=== PATIENT | male | born 1955 | race Caucasian/White ===

== ENCOUNTER 2016-08-02 17:24 | Inpatient (IN) | payer OTHER ==
[~2016-08-02] VITALS: Ht 177.8 cm; Wt 94.4 kg
[2016-08-02] VITALS (9 sets, daily range): BP systolic 134–148; BP diastolic 67–79; PULSE 94–119; RESP 22–36; TEMP 98.1–100.7; O2SAT 88–96
[~2016-08-02 17:24] MED LIST: BACT800T5 PO; DOXY100T PO; GABA300C3 PO; HYDR-3533 PO; SYMB160A INH
[2016-08-02] MEDS ORDERED: methylPREDNISolone SOD SUCC 125 MG/2 ML VIAL IVP ONE (18:15)
[2016-08-02] MEDS: RESP: ALBUTEROL 2.5 MG/IPRATROPIUM 0.5 MG NEB (SCH) INH ×2 (18:19→18:20)
[2016-08-02 18:21] LABS: AUTOMATED NEUTROPHIL # 17.4 TH/MM3 (1.8-7.7); BASOPHIL # 0.1 TH/MM3 (0-0.2); BASOPHIL % 0.4 % (0.0-2.0); EOSINOPHIL % 0.1 % (0.0-4.0); HEMATOCRIT 40.7 % (39.0-51.0); HEMO FLAGS DIFF FINAL; LYMPH % 11.9 % (9.0-44.0); LYMPHOCYTE # 2.5 TH/MM3 (1.0-4.8); MEAN CELL VOLUME 85.1 FL (80.0-100.0); MEAN CORPUSCULAR HEMOGLOBIN 28.3 PG (27.0-34.0); MEAN CORPUSCULAR HGB CONC 33.3 % (32.0-36.0); MONO % 4.6 % (0.0-8.0); PLATELET COUNT 272 TH/MM3 (150-450); RED BLOOD COUNT 4.78 MIL/MM3 (4.50-5.90); RED CELL DISTRIBUTION WIDTH 13.9 % (11.6-17.2)
[2016-08-02] MEDS ORDERED: METO-309 PO (18:24)
[2016-08-02] MEDS ORDERED: FLUT1SPR5 EACH NARE (18:24)
[2016-08-02] MEDS ORDERED: GABA300C5 PO (18:24)
[2016-08-02] MEDS ORDERED: GABA600T PO (18:24)
[2016-08-02] MEDS ORDERED: IPRASOL INH (18:24)
[2016-08-02] MEDS ORDERED: SYMB160A INH (18:24)
--- NOTE | 2016-08-02 18:25 | PD ---
HPI Chief Complaint: Respiratory Distress Time Seen by Provider: 17:47 Travel History International Travel<30 days: No Contact w/Intl Traveler<30days: No Traveled to known affect area: No History of Present Illness HPI This is a 60-year-old male who has a history of COPD who presents to the emergency department with increasing shortness of breath over the past week. He says primary care physician who prescribed him prednisone and an antibiotic which she thinks is doxycycline. He says his shortness of breath is just worsened associated with a cough, nausea and generalized fatigue. He has difficulty with exertion and he feels chest tightness in the center of his chest when he coughs and breathes. He has had subjective fevers and chills. He 's had a history of recurrent pneumonias in the past. PFSH Past Medical History Cancer: No Cardiac Catheterization: Yes (11/30/14) Cardiovascular Problems: Yes (HTN) High Cholesterol: Yes Chest Pain: Yes COPD: Yes Diabetes: Yes (BORDERLINE DIABETES) Patient Takes Glucophage: No Diminished Hearing: No Endocrine: Yes Gastrointestinal Disorders: No Genitourinary: No Headaches: Yes Hypertension: Yes Immune Disorder: No Musculoskeletal: No Neurologic: Yes Psychiatric: No Reproductive: No Respiratory: Yes (COPD) Tetanus Vaccination: < 5 Years Influenza Vaccination: No Past Surgical History Other Surgery: Yes Social History Alcohol Use: No Tobacco Use: Yes (07/02 ppd) Substance Use: No Allergies-Medications (Allergen,Severity, Reaction): Coded Allergies: No Known Allergies (Unverified , 08/02/16) Reported Meds & Prescriptions Reported Meds & Active Scripts Active Reported Flonase Allergy Relief Nasal [place] (Fluticasone Nasal [place]) 50 Mcg/Act [place] 2 Puff EACH NARE DAILY Gabapentin 600 Mg Tab 600 Mg PO HS Gabapentin 300 Mg Cap 300 Mg PO BID Symbicort Inh (Budesonide/Formoterol Fumarate) 160-4.5 Mcg/Act Aero 2 Puff INH Q12HR Review of Systems Except as stated in HPI: all other systems reviewed are Neg Physical Exam Narrative GENERAL:Well appearing, no acute distress SKIN: Warm and dry. HEAD: Atraumatic. Normocephalic. EYES: Pupils equal and round. No injection or drainage. ENT: Moist mucous membranes NECK: Trachea midline. CARDIOVASCULAR: Regular rate and rhythm. No murmur appreciated. RESPIRATORY: Diffuse wheezing, mild increased work of breathing, no accessory muscle use GASTROINTESTINAL: Abdomen soft, non-tender, nondistended. MUSCULOSKELETAL: No obvious deformities. NEUROLOGICAL: Awake and alert. No obvious cranial nerve deficits. Moving all extremities. PSYCHIATRIC: Appropriate mood and affect; insight and judgment normal. Data Data Last Documented VS Orders Electrocardiogram (08/02/16 ) Complete Blood Count With Diff (08/02/16 17:59) Comprehensive Metabolic Panel (08/02/16 17:59) ^ Insert Iv (08/02/16 17:59) Chest, Single Ap (08/02/16 ) Methylprednisolone So Succ Inj (Solumedr (08/02/16 18:15) Albuterol-Ipratropium Neb (Duoneb Neb) (08/02/16 18:15) Influenzae A/B Antigen (08/02/16 18:10) Blood Culture (08/02/16 18:41) Levofloxacin 750 Mg Premix Inj (Levaquin (08/02/16 18:45) Lactic Acid Sepsis Protocol (08/02/16 18:49) Sodium Chlor 0.9% 1000 Ml Inj (Ns 1000 M (08/02/16 18:49) Sodium Chlor 0.9% 1000 Ml Inj (Ns 1000 M (08/02/16 18:49) Sodium Chlor 0.9% 1000 Ml Inj (Ns 1000 M (08/02/16 18:49) Urinalysis - C+S If Indicated (08/02/16 19:00) Acetaminophen (Tylenol) (08/02/16 19:15) Vital Signs (Adult) ALEISHA.Q4H (08/02/16 21:02) Diet Heart Healthy (08/03/16 Breakfast) Admit To Inpatient (08/02/16 ) Inpatient Certification (08/02/16 ) Vital Signs (Adult) Q4H (08/02/16 21:02) Sodium Chloride 0.9% Flush (Ns Flush) (08/03/16 09:00) Sodium Chloride 0.9% Flush (Ns Flush) (08/02/16 21:15) Albuterol-Ipratropium Neb (Duoneb Neb) (08/03/16 00:00) Albuterol Neb (Albuterol Neb) (08/02/16 21:15) Nicotine 21 Mg Patch.24 Hr (Habitrol 21 (08/03/16 09:00) Copd Educator Consult (08/02/16 ) Enoxaparin Inj (Lovenox Inj) (08/02/16 22:00) Complete Blood Count With Diff (08/03/16 06:00) Troponin I (08/02/16 21:02) Ckmb (Isoenzyme) Profile (08/02/16 21:02) Acetaminophen (Tylenol) (08/02/16 21:15) Morphine Inj (Morphine Inj) (08/02/16 21:15) Levofloxacin 750 Mg Premix Inj (Levaquin (08/03/16 19:00) Remove Old Patch (08/03/16 09:00) Methylprednisolone So Succ Inj (Solumedr (08/03/16 02:00) Morphine Inj (Morphine Inj) (08/02/16 21:30) Admit Order (Ed Use Only) (08/02/16 21:51) CKMB (08/02/16 18:10) CKMB% (08/02/16 18:10) Labs MDM Medical Decision Making Medical Screen Exam Complete: Yes Emergency Medical Condition: Yes Interpretation(s) Temperature is 99.8, tachycardia, tachypnea, 88% on room air Differential Diagnosis Pneumonia, COPD exacerbation, congestive heart failure, bronchitis Narrative Course This is a 60-year-old male who presents to the emergency department with shortness of breath. He has failed outpatient therapy with antibiotics. Patient was treated with steroids, and antibiotics upfront. The patient will likely require admission. Case was discussed with Dr. Morrison. Scripts Furosemide (Lasix)20 Mg Tab20 Mg PO DAILY #3 TAB Ref 0 Prov:Josr Draper MD 08/12/16 Nebulizer/Adult Mask 1 Kit Kit #1 KIT .ROUTE DIRECTED Ref 0 Prov:Josr Draper MD 08/12/16 Nifedipine ER 24 HR 30 Mg Tab30 Mg PO BID #60 TAB Ref 3 Prov:Josr Draper MD 08/12/16 Prednisone 10 Mg Tab10 Mg PO DIRECTED 20 Days 30mg po bid x 3 days, 20mg po bid x 5 days, 10mg po bid x 5 days, 10mg po daily x 7 days Prov:Josr Draper MD 08/12/16 Ipratropium Neb 0.5 Mg/2.5 Ml Amp0.5 Mg NEB Q6HR 30 Days Ref 6 Prov:Josr Draper MD 08/12/16 Albuterol Neb 2.5 Mg/3 Ml Neb2.5 Mg INH Q6HR 30 Days Ref 6 Prov:Josr Draper MD 08/12/16 Wendy Power MD Aug 02, 2016 18:25 Wendy Power MD Aug 02, 2016 18:25
[2016-08-02 18:42] LABS: ANION GAP 9 MEQ/L (5-15); AST (GOT) 12 U/L (15-37); BICARBONATE 25.3 MEQ/L (21.0-32.0); BLOOD UREA NITROGEN 12 MG/DL (7-18); CHLORIDE 103 MEQ/L (98-107); GLOMERULAR FILTRATION RATE 72 ML/MIN (>89); POTASSIUM 3.8 MEQ/L (3.5-5.1); SODIUM (NA) 137 MEQ/L (136-145)
[2016-08-02] MEDS ORDERED: LEVOFLOXACIN 750 MG PREMIX INJ 150 ML IV ONE (18:45)
[2016-08-02 18:46] LABS: ALKALINE PHOSPHATASE 86 U/L (45-117); ALT (GPT) 27 U/L (12-78); TOTAL BILIRUBIN ADULT 0.8 MG/DL (0.2-1.0)
[2016-08-02] MEDS ORDERED: SODIUM CHLOR 0.9% 1000 ML INJ 700 ML IV ONE (18:49)
[2016-08-02] MEDS ORDERED: SODIUM CHLOR 0.9% 1000 ML INJ 1,000 ML IV ONE ×2 (18:49)
--- NOTE | 2016-08-02 18:50 | RADRPT ---
EXAM DATE/TIME: 08/02/2016 18:17 [facility] COMPARISON: CHEST SINGLE AP, August 18, 2014, 6:41. INDICATIONS : Patient has been short of breath since yesterday. MEDICAL HISTORY : Chronic obstructive pulmonary disease. Emphysema. SURGICAL HISTORY : None. ENCOUNTER: Subsequent ACUITY: 2 days PAIN SCORE: 0/10 LOCATION: Bilateral chest FINDINGS: A single view of the chest demonstrates the lungs to be symmetrically aerated without evidence of mas s, infiltrate or effusion. The cardiomediastinal contours are unremarkable. Osseous structures are intact. CONCLUSION: No evidence of acute cardiopulmonary disease. Tony Guy MD on August 02, 2016 at 18:48 Board Certified Radiologist. This report was verified electronically.
[2016-08-02] MEDS ORDERED: ACETAMINOPHEN 500 MG CPLT PO ONE (19:15)
--- NOTE | 2016-08-02 19:46 | PD ---
Data Data Last Documented VS Vital Signs Date Time Temp Pulse Resp B/P Pulse Ox O2 Delivery O2 Flow Rate FiO2 08/02/16 19:00 119 22 140/76 94 Nasal Cannula 4 08/02/16 18:50 100.7 Orders Electrocardiogram (08/02/16 ) Complete Blood Count With Diff (08/02/16 17:59) Comprehensive Metabolic Panel (08/02/16 17:59) ^ Insert Iv (08/02/16 17:59) Chest, Single Ap (08/02/16 ) Methylprednisolone So Succ Inj (Solumedr (08/02/16 18:15) Albuterol-Ipratropium Neb (Duoneb Neb) (08/02/16 18:15) Influenzae A/B Antigen (08/02/16 18:10) Blood Culture (08/02/16 18:41) Levofloxacin 750 Mg Premix Inj (Levaquin (08/02/16 18:45) Lactic Acid Sepsis Protocol (08/02/16 18:49) Sodium Chlor 0.9% 1000 Ml Inj (Ns 1000 M (08/02/16 18:49) Sodium Chlor 0.9% 1000 Ml Inj (Ns 1000 M (08/02/16 18:49) Sodium Chlor 0.9% 1000 Ml Inj (Ns 1000 M (08/02/16 18:49) Urinalysis - C+S If Indicated (08/02/16 19:00) Acetaminophen (Tylenol) (08/02/16 19:15) Labs Laboratory Tests Test 08/02/16 08/02/16 18:10 18:55 White Blood Count 21.0 TH/MM3 Red Blood Count 4.78 MIL/MM3 Hemoglobin 13.5 GM/DL Hematocrit 40.7 % Mean Corpuscular Volume 85.1 FL Mean Corpuscular Hemoglobin 28.3 PG Mean Corpuscular Hemoglobin 33.3 % Concent Red Cell Distribution Width 13.9 % Platelet Count 272 TH/MM3 Mean Platelet Volume 8.4 FL Neutrophils (%) (Auto) 83.0 % Lymphocytes (%) (Auto) 11.9 % Monocytes (%) (Auto) 4.6 % Eosinophils (%) (Auto) 0.1 % Basophils (%) (Auto) 0.4 % Neutrophils # (Auto) 17.4 TH/MM3 Lymphocytes # (Auto) 2.5 TH/MM3 Monocytes # (Auto) 1.0 TH/MM3 Eosinophils # (Auto) 0.0 TH/MM3 Basophils # (Auto) 0.1 TH/MM3 CBC Comment DIFF FINAL Differential Comment Sodium Level 137 MEQ/L Potassium Level 3.8 MEQ/L Chloride Level 103 MEQ/L Carbon Dioxide Level 25.3 MEQ/L Anion Gap 9 MEQ/L Blood Urea Nitrogen 12 MG/DL Creatinine 1.06 MG/DL Estimat Glomerular Filtration 72 ML/MIN Rate Random Glucose 103 MG/DL Calcium Level 9.0 MG/DL Total Bilirubin 0.8 MG/DL Aspartate Amino Transf 12 U/L (AST/SGOT) Alanine Aminotransferase 27 U/L (ALT/SGPT) Alkaline Phosphatase 86 U/L Total Protein 7.8 GM/DL Albumin 4.3 GM/DL Lactic Acid Level 2.0 mmol/L [facility] Medical Record Reviewed: Yes Supervised Visit with JOEL: No Narrative Course Please refer to the [place] provider's documentation. The patient is a 60-year- old male with COPD. He failed outpatient antibiotics (thought to be doxycycline ) for management of presumed pneumonia. He also received steroids. He has had a persistent dry cough coupled with generalized malaise and nausea prompting his ER arrival today. His O2 sat upon arrival was 88%. Workup reveals leukocytosis at 21,000 with a normal comprehensive panel and a lactic acid of 2.0. His chest x-ray shows no Consolidation. Influenza studies negative. He has received breathing treatments and IV fluids coupled with 3 L of crystalloid. Tylenol was also given along his sugar maximum 100.7. Blood cultures were drawn and Levaquin started. The patient was sat upright in bed during reassessment at approximately 6:30 PM and his O2 sat dropped to about 89 % while on 4 L nasal cannula. Patient was reassessed by me at about 7:15 with an O2 sat of 94% significant dyspnea/tachypnea. Admission for oxygen and IV antibiotics. Discussed with Dr. Montoya for the [facility] service. Numerically he meets sepsis criteria. Presumably the source is URI/pulmonary. EKG reveals a sinus tachycardia with a rate of 103 normal intervals and normal axis with T wave flattening or inversion or ST elevation CBC & BMP Diagram 08/02/16 18:10 Lactic acid 2.0 LFTs normal Sepsis Criteria SIRS Criteria (2 or more): RR > 20 or PaCO2 < 32, WBC > 21218, < 4000 or > 10 % bands Sepsis Criteria (SIRS+source): Infect source susp/known Diagnosis Primary Impression: COPD with exacerbation Additional Impression: Sepsis Qualified Code: A41.9 - Sepsis, due to unspecified organism Admitting Information Admitting Physician Requests: Kenedll Arellano MD Aug 02, 2016 19:46
[2016-08-02] MEDS ORDERED: SODIUM CHLORIDE 0.9% FLUSH 5 ML FLUSH IVF PRN (21:15)
[2016-08-02] MEDS ORDERED: ACETAMINOPHEN 500 MG CPLT PO PRN (21:15)
[2016-08-02] MEDS ORDERED: MORPHINE SULFATE 4 MG/ML INJ IV PUSH ONE ×2 (21:15→21:30)
[2016-08-02 22:08] LABS: BLOOD, URINE NEG (NEG); COMMENT (UR) CULT NOT INDICATED; CULTURE IF INDICATED CULT NOT INDICATED; GLUCOSE,URINE NEG (NEG); KETONE, URINE 10 mg/dL (NEG); MUCUS URINE FEW /lpf (OCC); NITRITE,URINE NEG (NEG); URINE COLOR LIGHT-YELLOW (YELLW/STRAW)
[2016-08-02] MEDS: ENOXAPARIN SODIUM 40 MG/0.4 ML SYRINGE SQ SCH (22:13)
--- NOTE | 2016-08-02 22:20 | HHI.HP ---
HPI Service CP Hospitalists Primary Care Physician No Primary Care Physician Admission Diagnosis COPD Exacerbation Chief Complaint: sob, wheeze, chest tightness Travel History International Travel<30 Days: No Contact w/Intl Traveler <30 Da: No Traveled to Known Affected Are: No Sepsis Criteria SIRS Criteria (2 or more): Heart rate over 90, RR > 20 or PaCO2 < 32, WBC > 53948, < 4000 or > 10% bands Sepsis Criteria (SIRS+source): Infect source susp/known Criteria Outcome: Meets sepsis criteria History of Present Illness This is a 60-year-old male who has a 10 year history of COPD presents to the emergency department with increasing shortness of breath over the past week. He says primary care physician who prescribed him prednisone and an antibiotic which he thinks is doxycycline. He finished this antibiotic approximately 14 days ago. He is actually had several COPD exacerbations since late May 2016 and has been through at least 2 cycles of antibiotics and steroids as an outpatient. He is recently switched primary care physicians to Dr. Ramos as he is now [facility] but has not seen his new primary care physician yet. He says his shortness of breath is worsening over the last week associated with a cough, nausea and generalized fatigue. Cough is generally nonproductive. He has difficulty with exertion and he feels chest tightness in the center of his chest when he coughs and breathes. He has had subjective fevers and chills. He 's had a history of recurrent pneumonias in the past. He has not been intubated but has been admitted several times for pneumonia with COPD exacerbation. He has been given nebulizers, supplemental oxygen, and steroids and antibiotics in the ER. His breathing has somewhat improved but he still feels like he has pressure in his chest. A radiation of pain. No diaphoresis. Review of Systems Constitutional: COMPLAINS OF: Fatigue, Fever, Change in appetite, DENIES: Diaphoretic episodes, Weight gain, Weight loss, Chills, Dizziness, Night Sweats Endocrine: COMPLAINS OF: Polydipsia, DENIES: Heat/cold intolerance, Polyuria, Polyphagia Eyes: DENIES: Blurred vision, Diplopia, Eye inflammation, Eye pain, Vision loss , Photosensitivity, Double Vision Ears, nose, mouth, throat: COMPLAINS OF: Sinus Pain, DENIES: Tinnitus, Hearing loss, Vertigo, Nasal discharge, Oral lesions, Throat pain, Hoarseness, Ear Pain, Running Nose, Epistaxis, Toothache, Odynophagia Respiratory: COMPLAINS OF: Cough, Wheezing, Sputum production, Shortness of breath, DENIES: Apneas, Snoring, Hemoptysis Cardiovascular: COMPLAINS OF: Chest pain, Dyspnea on Exertion, DENIES: Palpitations, Syncope, PND, Lower Extremity Edema, Orthopnea, Claudication Gastrointestinal: COMPLAINS OF: Nausea, DENIES: Abdominal pain, Black stools, Bloody stools, BRB per rectum, Constipation, Diarrhea, GERD, Reflux, Vomiting, Difficulty Swallowing, Anorexia, See HPI Musculoskeletal: COMPLAINS OF: Joint pain Integumentary: DENIES: Abnormal pigmentation, Nail changes, Pruritus, Rash Hematologic/lymphatic: DENIES: Bruising, Lymphadenopathy Immunologic/allergic: DENIES: Eczema, Urticaria Neurologic: DENIES: Abnormal gait, Headache, Localized weakness, Paresthesias, Seizures, Speech Problems, Tremor, Poor Balance Psychiatric: COMPLAINS OF: Anxiety, DENIES: Confusion, Mood changes, Depression, Hallucinations, Agitation, Suicidal Ideation, Homicidal Ideation, Delusions, History of Bipolar, History of Schizophrenia Past Family Social History Past Medical History COPD with recurrent pneumonias Hypertension Prediabetes Cerebral aneurysm discovered approximately 3 years ago 40-50% stenosis of large RCA vessel per 2015 catheter, other vessels were all patent and EF was normal at that time. Past Surgical History Nasal surgery for deviated septum Heart catheterization in 2015 as noted above Reported Medications Symbicort 160/4.52 puffs twice a day Metoprolol tartrate 50 mg twice a day Gabapentin 300 mg 3 times a day Flonase 1 squirt per nostril daily Men's multivitamin once a day Allergies: Coded Allergies: No Known Allergies (Unverified , 08/02/16) Family History Noncontributory Social History Works part-time in a [employer] shop Has been with his significant other for 6 years Smokes half pack per day of cigarettes over the last 4 months, but before that smoked 2-3 packs per day for approximately 40 years Originally from [place], he has been here for 2 years Rarely drinks any alcohol Denies illicit drug Has 2 adult children that do not live in the area Physical Exam Vital Signs Vital Signs Date Time Temp Pulse Resp B/P Pulse Ox O2 Delivery O2 Flow Rate FiO2 08/02/16 19:00 119 22 140/76 94 Nasal Cannula 4 08/02/16 18:50 100.7 08/02/16 18:23 99.8 100 35 134/74 96 Nasal Cannula 4 08/02/16 18:20 95 Nasal Cannula 4.00 08/02/16 17:27 114 36 139/79 88 Room Air Physical Exam GENERAL: This is a well-nourished, well-developed patient, in no apparent distress. Alert and oriented. SKIN: No rashes, ecchymoses or lesions. Cool and dry. HEAD: Atraumatic. Normocephalic. No temporal or scalp tenderness. EYES: Pupils equal round and reactive. Extraocular motions intact. No scleral icterus. No injection or drainage. ENT: Nose without bleeding, purulent drainage or septal hematoma. Throat without erythema, tonsillar hypertrophy or exudate. Uvula midline. Airway patent. NECK: Trachea midline. No JVD or lymphadenopathy. Supple, nontender, no meningeal signs. CARDIOVASCULAR: Slightly tachycardic without murmurs, gallops, or rubs. RESPIRATORY: Prolonged expiratory phase with expiratory wheezing noted bilaterally. Coarse bronchovesicular sounds in bilateral bases. Fair air movement. GASTROINTESTINAL: Abdomen soft, non-tender, nondistended. No hepato-splenomegaly , or palpable masses. No guarding. MUSCULOSKELETAL: Extremities without clubbing, cyanosis, or edema. No joint tenderness, effusion, or edema noted. No calf tenderness. NEUROLOGICAL: Awake and alert. Cranial nerves II through XII intact. Motor and sensory grossly within normal limits. Five out of 5 muscle strength in all muscle groups. Normal speech. Laboratory Laboratory Tests Test 08/02/16 08/02/16 18:10 18:55 White Blood Count 21.0 Red Blood Count 4.78 Hemoglobin 13.5 Hematocrit 40.7 Mean Corpuscular Volume 85.1 Mean Corpuscular Hemoglobin 28.3 Mean Corpuscular Hemoglobin 33.3 Concent Red Cell Distribution Width 13.9 Platelet Count 272 Mean Platelet Volume 8.4 Neutrophils (%) (Auto) 83.0 Lymphocytes (%) (Auto) 11.9 Monocytes (%) (Auto) 4.6 Eosinophils (%) (Auto) 0.1 Basophils (%) (Auto) 0.4 Neutrophils # (Auto) 17.4 Lymphocytes # (Auto) 2.5 Monocytes # (Auto) 1.0 Eosinophils # (Auto) 0.0 Basophils # (Auto) 0.1 CBC Comment DIFF FINAL Differential Comment Sodium Level 137 Potassium Level 3.8 Chloride Level 103 Carbon Dioxide Level 25.3 Anion Gap 9 Blood Urea Nitrogen 12 Creatinine 1.06 Estimat Glomerular Filtration 72 Rate Random Glucose 103 Calcium Level 9.0 Total Bilirubin 0.8 Aspartate Amino Transf 12 (AST/SGOT) Alanine Aminotransferase 27 (ALT/SGPT) Alkaline Phosphatase 86 Total Protein 7.8 Albumin 4.3 Lactic Acid Level 2.0 Date/Time Procedure Status Source Growth 08/02/16 18:50 Aerobic Blood Culture Received Blood Peripheral Pending 08/02/16 18:50 Anaerobic Blood Culture Received Blood Peripheral Pending 08/02/16 18:20 Influenza Types A,B Antigen ([facility]) - Final Complete Nasal Washing NEGATIVE FOR FLU A AND B ANTIGEN.... Result Diagram: 08/02/16 1810 08/02/16 1810 Imaging Last 72 hours Impressions Chest X-Ray 08/02/16 0000 Signed Impressions: Service Date/Time: August 18:17 - CONCLUSION: No evidence of acute cardiopulmonary disease. Tony Guy MD Assessment and Plan Problem List: (1) COPD with exacerbation Status: Acute Plan: Provide supplemental oxygen, steroids, antibiotics and nebulizers. Patient has improved and hypoxia has improved as well. He has several admissions for pneumonia in the past. (2) Sepsis Status: Acute Plan: Likely of a respiratory source. We'll treat as if he has underlying community-acquired pneumonia at this point. Has reportedly failed a couple rounds of antibiotics. (3) Bronchitis Status: Acute Plan: Treat as noted above. (4) Tobacco abuse Status: Chronic Plan: Counseled to stop smoking. Provide NicoDerm. Code Status Full Discussed Condition With Patient and his significant other who was present during exam. Physician Certification 2 Midnight Certification Type: Admission for Inpatient Services Order for Inpatient Services The services are ordered in accordance with Medicare regulations or non- Medicare payer requirements, as applicable. In the case of services not specified as inpatient-only, they are appropriately provided as inpatient services in accordance with the 2-midnight benchmark. Estimated LOS (days): 3 days is the estimated time the patient will need to remain in the hospital, assuming treatment plan goals are met and no additional complications. Post-Hospital Plan: Home Problem Qualifiers (1) Sepsis: Qualified Code: A41.9 - Sepsis, due to unspecified organism Bob Montoya PhD Aug 02, 2016 22:20
[2016-08-02] MEDS ORDERED: ENALAPRILAT 1.25 MG/ML VIAL IV PUSH PRN (22:30)
[2016-08-02 22:42] LABS: CREATINE KINASE 148 U/L (39-308)
[2016-08-02 22:54] LABS: CKMB 0.9 NG/ML (0.5-3.6)
[2016-08-03] VITALS (17 sets, daily range): BP systolic 120–162; BP diastolic 59–87; PULSE 82–116; RESP 18–20; TEMP 96.2–98.3; O2SAT 92–99
[2016-08-03] MEDS: RESP: ALBUTEROL 2.5 MG/IPRATROPIUM 0.5 MG NEB (SCH) INH ×5 (00:55→20:31)
[2016-08-03] MEDS: methylPREDNISolone SOD SUCC 125 MG/2 ML VIAL IVP SCH ×3 (02:00→18:57)
[2016-08-03 02:59] LABS: CREATINE KINASE 172 U/L (39-308)
[2016-08-03 06:50] LABS: CREATINE KINASE 269 U/L (39-308)
[2016-08-03 06:51] LABS: BASOPHIL % 0.3 % (0.0-2.0); HEMATOCRIT 37.4 % (39.0-51.0); HEMO FLAGS DIFF FINAL; LYMPH % 8.1 % (9.0-44.0); LYMPHOCYTE # 1.3 TH/MM3 (1.0-4.8); MEAN CELL VOLUME 85.8 FL (80.0-100.0); MEAN CORPUSCULAR HEMOGLOBIN 28.2 PG (27.0-34.0); MEAN CORPUSCULAR HGB CONC 32.9 % (32.0-36.0); MONO % 1.1 % (0.0-8.0); NEUT % 90.5 % (16.0-70.0); PLATELET COUNT 210 TH/MM3 (150-450); RED BLOOD COUNT 4.35 MIL/MM3 (4.50-5.90); WHITE BLOOD COUNT 15.5 TH/MM3 (4.0-11.0)
[2016-08-03 07:03] LABS: CKMB 1.9 NG/ML (0.5-3.6)
[2016-08-03] MEDS: REMOVE OLD NICODERM (NICOTINE) PATCH TD SCH (09:00)
[2016-08-03] MEDS: NICOTINE 21 MG/24 HR PATCH TD SCH (09:02)
[2016-08-03] MEDS: GABAPENTIN 300 MG CAP PO SCH ×3 (09:02→21:04)
[2016-08-03] MEDS: SODIUM CHLORIDE 0.9% FLUSH 5 ML FLUSH IVF SCH ×2 (09:03→21:04)
[2016-08-03] MEDS: FLUTICASONE PROPIONATE 50 MCG/ACT 16 GM NASAL SPRAY EACH NARE SCH (09:03)
[2016-08-03] MEDS: MORPHINE SULFATE 4 MG/ML INJ IV PUSH PRN ×4 (09:11→23:13)
[2016-08-03] MEDS: RESP: ALBUTEROL 2.5 MG/3 ML NEB (PRN) INH ×2 (10:17→14:13)
[2016-08-03] MEDS: NIFEdipine 30 MG SUSTAINED RELEASE TAB PO SCH (10:26)
--- NOTE | 2016-08-03 13:25 | RADRPT ---
EXAM DATE/TIME: 08/03/2016 13:04 [facility] COMPARISON: CHEST SINGLE AP, August 02, 2016, 18:17. INDICATIONS : Shortness of breath, chest pain and cough. MEDICAL HISTORY : Chronic obstructive pulmonary disease. Emphysema. SURGICAL HISTORY : None. ENCOUNTER: Initial ACUITY: 3 days PAIN SCORE: 5/10 LOCATION: Bilateral chest FINDINGS: A single view of the chest demonstrates the lungs to be symmetrically aerated without evidence of mas s, infiltrate or effusion. The cardiomediastinal contours are unremarkable. Osseous structures are intact. CONCLUSION: No acute disease. Catarino Gómez MD FACR on August 03, 2016 at 13:23 Board Certified Radiologist. This report was verified electronically.
--- NOTE | 2016-08-03 13:46 | EKG ---
Date Performed: 08/02/2016 Time Performed: 17:56:00 PTAGE: 60 years EKG: SINUS TACHYCARDIA POSSIBLE LEFT ATRIAL ENLARGEMENT SEPTAL MYOCARDIAL INFARCTION Compared to previous tracing the patient has developed sinus tachycardia but when allowing for the differences i n technique there is probably no other significant serial change ABNORMAL ECG PREVIOUS TRACING : 08/02/2016 17.54 DOCTOR: Merced Christiansen Interpretating Date/Time 08/07/2016 07:50:11
--- NOTE | 2016-08-03 14:19 | HHI.PR ---
Subjective Remarks Pt is tachypneic and uncomfortable d/t SOB. Objective Vitals Vital Signs Date Time Temp Pulse Resp B/P Pulse Ox O2 Delivery O2 Flow Rate FiO2 08/03/16 12:42 93 Venturi Mask 40 08/03/16 12:25 93 Nasal Cannula 5.00 08/03/16 08:07 93 Nasal Cannula 4.00 08/03/16 08:00 96.4 110 18 162/77 92 08/03/16 04:20 96.2 82 20 137/76 95 08/03/16 00:56 93 Nasal Cannula 4.00 08/03/16 00:30 96.5 93 20 145/87 95 08/03/16 00:04 95 20 134/67 95 Nasal Cannula 4 08/02/16 23:00 94 24 138/70 95 Nasal Cannula 08/02/16 22:00 98 26 140/67 94 Nasal Cannula 08/02/16 21:00 110 26 144/73 93 Nasal Cannula 4 08/02/16 20:00 98.1 118 22 148/75 93 Nasal Cannula 4 08/02/16 19:00 94 Nasal Cannula 4.00 08/02/16 19:00 119 22 140/76 94 Nasal Cannula 4 08/02/16 18:50 100.7 08/02/16 18:23 99.8 100 35 134/74 96 Nasal Cannula 4 08/02/16 18:20 95 Nasal Cannula 4.00 08/02/16 17:27 88 21 08/02/16 17:27 114 36 139/79 88 Room Air 08/02/16 08/02/16 08/03/16 15:00 23:00 07:00 Intake Total 600 ml Balance 600 ml Intake Oral 600 ml # Voids 3 # Bowel Movements 0 Result Diagram: 08/03/16 0534 08/02/16 1810 Imaging Last Impressions Chest X-Ray 08/03/16 0000 Signed Impressions: Service Date/Time: Wednesday, August 03, 2016 13:04 - CONCLUSION: No acute disease. Catarino Gómez MD FACR A/P Problem List: (1) COPD with exacerbation Status: Acute Plan: - pt NOT tolerating 5L - will change to Bipap - case d/w Dr. Catalan. He will consult - CXR (08/03/16) --> NO acute findings - IV solumedrol - duonebs - ABG pending - pt/ agree to intubation if necessary - levaquin 2/2-2/3 - start zosyn (2) Sepsis Status: Acute Plan: Likely of a respiratory source. We'll treat as if he has underlying community-acquired pneumonia at this point. Has reportedly failed a couple rounds of antibiotics. (3) Bronchitis Status: Acute Plan: Treat as noted above. (4) Tobacco abuse Status: Chronic Plan: Counseled to stop smoking. Provide NicoDerm. Problem Qualifiers (1) Sepsis: Qualified Code: A41.9 - Sepsis, due to unspecified organism Gray Martinez DO Aug 03, 2016 14:19
[2016-08-03 15:02] LABS: BLOOD GAS BASE EXCESS -5.9 mmol/L (-2-2); BLOOD GAS CARBOXYHEMOGLOBIN 1.1 % (0-4); BLOOD GAS HCO3 18 mmol/L (22-26); BLOOD GAS METHEMOGLOBIN 0.9 % (0-2); BLOOD GAS O2 HGB SATURATION 94 % (90-100); BLOOD GAS OXYGEN CONTENT 15.3 Vol % (12.0-20.0); BLOOD GAS PCO2 30 mmHg (38-42); BLOOD GAS PO2 81 mmHg (61-120); BLOOD GAS TOTAL HGB 11.5 G/DL (12.0-16.0); CRITICAL VALUE NO; OXYGEN DEVICE Venti Mask; TEMP CORR TO 98.6
[2016-08-03 15:03] LABS: DRAW SITE RT RADIAL; FIO2 40 %; NUMBER OF ARTERIAL PUNCTURES 1; STAT NO; ULNAR PULSE PRESENT
[2016-08-03] MEDS: PIPERACIL-TAZO 4.5 GM PREMIX 100 ML IV SCH ×2 (16:29→21:13)
[2016-08-03] MEDS: ACETAMINOPHEN/HYDROcodone 325 MG/5 MG TAB PO PRN (16:37)
[2016-08-03] MEDS ORDERED: LEVOFLOXACIN 750 MG PREMIX INJ 150 ML IV SCH (19:00)
--- NOTE | 2016-08-03 20:21 | MB ---
cc: GENNA LEDBETTER MD DATE OF CONSULTATION: 08/03/2016 REASON FOR CONSULTATION: COPD exacerbation. REQUESTING PHYSICIAN: Dr. Gray Martinez. HISTORY OF PRESENT ILLNESS: Mr. Allen is a pleasant 60-year-old white male with history of COPD. He has not been feeling well since . He has a history of multiple courses of antibiotics and steroids. He has been having cough and took some cough syrup with codeine which did not help him and he decided to come to the emergency room. He was initially was admitted on the floor. He was getting more short of breath. He has a blood gas on 40% VentiMask which showed pH of 7.40, pc02 of 30, p02 81, bicarbonate 18. The patient was transferred to the intensive care unit and now he is on BiPAP with FIO2 of 40% and he feels significantly better. He has had no recent exacerbation. He does not use any oxygen at home. He uses Symbicort and nebulizer treatment. PAST MEDICAL HISTORY: He has past medical history is significant for: 1. History of hypertension. 2. Pre-diabetes. 3. COPD. 4. History of cerebral aneurysm which was diagnosed in [place] and he has yearly followup with an MRI. 5. History of coronary artery disease and cardiac catheterization but no intervention. MEDICATIONS: He is currently taking : 1. Neurontin 600 milligrams at nighttime. 2. Zosyn q. 6 hours. 3. Nifedipine 30 milligrams a day. 4. Nicotine patch. 5. Flonase nasal spray. 6. Solu-Medrol 60 milligrams q. 8 hours. 7. Albuterol and Atrovent nebulizer treatments. 8. Morphine for pain. 9. Lovenox 40 milligrams a day. ALLERGIES: NO KNOWN DRUG ALLERGIES. SOCIAL HISTORY: He is . He lives with a significant other for the last six years. He still works for [employer]. He has a long history of smoking up to three packs a day but he has cut down to half-a-pack a day. REVIEW OF SYSTEMS: Normally he is up around and active. No seizure, stroke or epilepsy. No DVT or pulmonary embolism. PHYSICAL EXAMINATION: GENERAL: A well-built and well-nourished male short of breath on BiPAP. VITAL SIGNS: Blood pressure 120/59, heart rate 160, respirations 20, temperature 98. HEAD, EYES, EARS, NOSE, THROAT: Pupils are equal and reactive to light. Oral mucosa and nasal mucosa are normal. NECK: The neck is supple. JVP not raised. CHEST: Air entry equal bilaterally. He has bilateral expiratory rhonchi. CARDIOVASCULAR: S1 and S2 normal. ABDOMEN: Abdomen benign. EXTREMITIES: No edema. PREDATORY ANIMAL TRAPPER: He is alert and oriented times three. No focal deficits. LABORATORY FINDINGS: His WBC count is 15.5, hemoglobin 12.3, hematocrit 37.4, MCV 85, platelet count 210,000. His sodium is 137, potassium 3.8, chloride 103, carbon dioxide 25, BUN 12, creatinine 1.06. IMAGING STUDIES: Chest x-ray shows no acute infiltrate. IMPRESSION: 1. COPD exacerbation. 2. Respiratory insufficiency. 3. Bronchitis. 4. Hypertension. 5. Nicotine use. PLAN: I discussed with the patient and his significant other we will keep him on BiPAP overnight, IV Solu-Medrol, aerosol treatment, give him cough syrup with codeine and also Tessalon, supplement oxygen to keep the saturation greater than 90%. I advised him about smoking cessation. Once he gets better, we will get pulmonary function studies. Further treatment will depend on the course in the hospital. Thank you, Dr. Martinez, for this consultation. MD GUTIERREZ Kelly/MARIBELL /7:21 PM /8:08 PM
[2016-08-03] MEDS: guaiFENesin/CODEINE SYRUP 200 MG/20 MG/10 ML CUP PO SCH (21:04)
[2016-08-03] MEDS: ENOXAPARIN SODIUM 40 MG/0.4 ML SYRINGE SQ SCH (21:13)
[2016-08-03] MEDS ORDERED: CHLORHEXIDINE GLUCONATE 2 % 1 PACK (2 CLOTHS)(extra cloths) TOP PRN (22:30)
[2016-08-04] VITALS (16 sets, daily range): BP systolic 123–134; BP diastolic 69–72; PULSE 70–104; RESP 14–24; TEMP 97.5–98; O2SAT 94–99
[2016-08-04] MEDS: RESP: ALBUTEROL 2.5 MG/IPRATROPIUM 0.5 MG NEB (SCH) INH ×6 (00:39→20:31)
[2016-08-04] MEDS: methylPREDNISolone SOD SUCC 125 MG/2 ML VIAL IVP SCH ×3 (03:34→17:53)
[2016-08-04] MEDS: PIPERACIL-TAZO 4.5 GM PREMIX 100 ML IV SCH ×4 (03:34→20:56)
[2016-08-04] MEDS: guaiFENesin/CODEINE SYRUP 200 MG/20 MG/10 ML CUP PO SCH ×4 (03:34→20:54)
[2016-08-04] MEDS: CHLORHEXIDINE GLUCONATE 2 % 1 PACK (2 CLOTHS)(taper/protocol) TOP SCH (03:36)
[2016-08-04] MEDS: MORPHINE SULFATE 4 MG/ML INJ IV PUSH PRN ×2 (03:43→21:11)
[2016-08-04] MEDS: BENZONATATE 100 MG CAP PO SCH ×3 (08:54→18:00)
[2016-08-04] MEDS: NIFEdipine 30 MG SUSTAINED RELEASE TAB PO SCH (08:54)
[2016-08-04] MEDS: REMOVE OLD NICODERM (NICOTINE) PATCH TD SCH (08:54)
[2016-08-04] MEDS: NICOTINE 21 MG/24 HR PATCH TD SCH (08:54)
[2016-08-04] MEDS: GABAPENTIN 300 MG CAP PO SCH ×3 (08:54→20:55)
[2016-08-04] MEDS: SODIUM CHLORIDE 0.9% FLUSH 5 ML FLUSH IVF SCH ×2 (08:57→20:56)
[2016-08-04] MEDS: FLUTICASONE PROPIONATE 50 MCG/ACT 16 GM NASAL SPRAY EACH NARE SCH (09:00)
--- NOTE | 2016-08-04 11:08 | HHI.PR ---
Subjective Remarks BiPap stopped at 3 hours ago Pt breathing comfortably on 4L NC. Objective Vitals Vital Signs Date Time Temp Pulse Resp B/P Pulse Ox O2 Delivery O2 Flow Rate FiO2 08/04/16 09:08 98 Nasal Cannula 4.00 08/04/16 06:00 77 08/04/16 05:00 97.8 76 14 130/72 97 08/04/16 04:20 99 40 08/04/16 04:00 94 Nasal Cannula 4.00 08/04/16 04:00 70 08/04/16 03:48 16 08/04/16 02:00 75 08/04/16 01:15 98 40 08/04/16 00:00 81 08/04/16 00:00 98.0 81 16 123/71 97 08/03/16 22:18 96 40 08/03/16 22:00 92 08/03/16 20:31 99 40 08/03/16 20:31 99 BiPAP 40 08/03/16 20:00 101 08/03/16 20:00 98.3 97 18 132/68 96 08/03/16 18:00 102 08/03/16 16:19 97 40 08/03/16 16:00 98.0 116 20 120/59 98 08/03/16 14:45 98 40 08/03/16 12:42 93 Venturi Mask 40 08/03/16 12:25 93 Nasal Cannula 5.00 08/03/16 12:00 96.5 110 18 129/69 94 08/03/16 08/03/16 08/04/16 15:00 23:00 07:00 Intake Total 600 ml 84 ml Balance 600 ml 84 ml Intake Oral 600 ml IV Total 84 ml # Voids 4 # Bowel Movements 0 Result Diagram: 08/03/16 0534 08/02/16 1810 Imaging Last Impressions Chest X-Ray 08/03/16 0000 Signed Impressions: Service Date/Time: Wednesday, August 03, 2016 13:04 - CONCLUSION: No acute disease. Catarino Gómez MD FACR Objective Remarks GENERAL: This is a well-nourished, well-developed patient, in no apparent distress. CARDIOVASCULAR: Regular rate and rhythm without murmurs, gallops, or rubs. RESPIRATORY: Pt with diffuse wheezing on both inhalation and exhalation, but air movement much improved from 2/3 GASTROINTESTINAL: Abdomen soft, non-tender, nondistended. Normal active bowel sounds MUSCULOSKELETAL: Extremities without clubbing, cyanosis, or edema. NEURO: Alert & Oriented x4 to person, place, time, situation. Moves all ext x4 A/P Problem List: (1) COPD with exacerbation Status: Acute Plan: - comgmt with Pulmonary - much improved from 08/03 - tolerating 4L NC - if desaturates at night will resume Bipap - CXR (08/03/16) --> NO acute findings - IV solumedrol - duonebs - IS - Acapella - levaquin 08/02-08/03 - start zosyn - pt strongly counselled on the importance of smoking cessation (2) Sepsis Status: Acute Plan: Likely of a respiratory source. We'll treat as if he has underlying community-acquired pneumonia at this point. Has reportedly failed a couple rounds of antibiotics. - resolved - see above (3) Bronchitis Status: Acute Plan: Treat as noted above. (4) Tobacco abuse Status: Chronic Plan: Counseled to stop smoking. Provide NicoDerm. Problem Qualifiers (1) Sepsis: Qualified Code: A41.9 - Sepsis, due to unspecified organism Gray Martinez DO Aug 04, 2016 11:08
[2016-08-04 12:13] LABS: AUTOMATED NEUTROPHIL # 23.2 TH/MM3 (1.8-7.7); BASOPHIL % 0.1 % (0.0-2.0); HEMATOCRIT 38.1 % (39.0-51.0); HEMO FLAGS DIFF FINAL; LYMPH % 4.9 % (9.0-44.0); LYMPHOCYTE # 1.2 TH/MM3 (1.0-4.8); MEAN CELL VOLUME 85.8 FL (80.0-100.0); MEAN CORPUSCULAR HGB CONC 32.7 % (32.0-36.0); MONO % 2.7 % (0.0-8.0); NEUT % 92.3 % (16.0-70.0); PLATELET COUNT 249 TH/MM3 (150-450); RED BLOOD COUNT 4.44 MIL/MM3 (4.50-5.90); RED CELL DISTRIBUTION WIDTH 14.2 % (11.6-17.2); WHITE BLOOD COUNT 25.1 TH/MM3 (4.0-11.0)
[2016-08-04 12:35] LABS: BICARBONATE 25.7 MEQ/L (21.0-32.0); POTASSIUM 3.2 MEQ/L (3.5-5.1)
--- NOTE | 2016-08-04 17:49 | HHI.PR ---
Subjective Remarks 60 YOWM with COPD exac, Bronchitis Used BIPAP last night Feels much better Weaned to 4 LNC Has cough no Fever Objective Vital Signs Vital Signs Date Time Temp Pulse Resp B/P Pulse Ox O2 Delivery O2 Flow Rate FiO2 08/04/16 16:00 94 Nasal Cannula 4.00 08/04/16 16:00 88 08/04/16 14:00 104 08/04/16 12:00 77 08/04/16 12:00 93 Nasal Cannula 4.00 08/04/16 10:00 88 08/04/16 09:08 98 Nasal Cannula 4.00 08/04/16 08:00 76 08/04/16 08:00 94 Nasal Cannula 4.00 08/04/16 06:00 77 08/04/16 05:00 97.8 76 14 130/72 97 08/04/16 04:20 99 40 08/04/16 04:00 94 Nasal Cannula 4.00 08/04/16 04:00 70 08/04/16 03:48 16 08/04/16 02:00 75 08/04/16 01:15 98 40 08/04/16 00:00 81 08/04/16 00:00 98.0 81 16 123/71 97 08/03/16 22:18 96 40 08/03/16 22:00 92 08/03/16 20:31 99 40 08/03/16 20:31 99 BiPAP 40 08/03/16 20:00 101 08/03/16 20:00 98.3 97 18 132/68 96 08/03/16 18:00 102 I/O 08/03/16 08/03/16 08/03/16 08/04/16 08/04/16 08/04/16 07:00 15:00 23:00 07:00 15:00 23:00 Intake Total 600 ml 600 ml 84 ml 500 ml Balance 600 ml 600 ml 84 ml 500 ml Intake Oral 600 ml 600 ml 400 ml IV Total 84 ml 100 ml # Voids 3 4 3 # Bowel Movements 0 0 0 Result Diagram: 08/04/16 1157 08/04/16 1157 Objective Remarks GENERAL: WBWN WM, mild sob SKIN: Warm and dry. HEAD: Normocephalic. EYES: No scleral icterus. No injection or drainage. NECK: Supple, trachea midline. No JVD or lymphadenopathy. CARDIOVASCULAR: Regular rate and rhythm without murmurs, gallops, or rubs. RESPIRATORY: Breath sounds equal bilaterally. No accessory muscle use. Exp rhonchi GASTROINTESTINAL: Abdomen soft, non-tender, nondistended. MUSCULOSKELETAL: No cyanosis, or edema. BACK: Nontender without obvious deformity. No CVA tenderness. A/P Assessment and Plan COPD exac Resp insuff HTN Nicotine use PLAN: IV Abx Zosyn IV Solumedrol Aerosol nebs Robitussin AC cough syp Tessalon 200 mg tid Humberto Catalan MD Aug 04, 2016 17:48
[2016-08-04] MEDS: ENOXAPARIN SODIUM 40 MG/0.4 ML SYRINGE SQ SCH (20:56)
[2016-08-04] MEDS ORDERED: CALCIUM CARBONATE 500 MG CHEWABLE TAB PO SCH (21:15)
[2016-08-04] MEDS ORDERED: CALCIUM CARBONATE 500 MG CHEWABLE TAB PO PRN (21:15)
[2016-08-04] MEDS ORDERED: PANTOPRAZOLE SOD 40 MG DELAYED RELEASE TAB PO SCH (21:15)
[2016-08-05] VITALS (15 sets, daily range): BP systolic 116–144; BP diastolic 58–75; PULSE 82–99; RESP 10–21; TEMP 96–98.2; O2SAT 94–97
[2016-08-05] MEDS: RESP: ALBUTEROL 2.5 MG/IPRATROPIUM 0.5 MG NEB (SCH) INH ×6 (00:07→20:25)
[2016-08-05] MEDS: methylPREDNISolone SOD SUCC 125 MG/2 ML VIAL IVP SCH ×3 (01:24→17:45)
[2016-08-05] MEDS: guaiFENesin/CODEINE SYRUP 200 MG/20 MG/10 ML CUP PO SCH ×4 (01:24→20:58)
[2016-08-05] MEDS: CHLORHEXIDINE GLUCONATE 2 % 1 PACK (2 CLOTHS)(taper/protocol) TOP SCH (01:25)
[2016-08-05] MEDS: PIPERACIL-TAZO 4.5 GM PREMIX 100 ML IV SCH ×4 (04:42→21:01)
[2016-08-05 05:37] LABS: AUTOMATED NEUTROPHIL # 16.1 TH/MM3 (1.8-7.7); BASOPHIL % 0.1 % (0.0-2.0); HEMATOCRIT 36.3 % (39.0-51.0); HEMO FLAGS DIFF FINAL; LYMPH % 6.9 % (9.0-44.0); LYMPHOCYTE # 1.2 TH/MM3 (1.0-4.8); MEAN CELL VOLUME 85.9 FL (80.0-100.0); MEAN CORPUSCULAR HEMOGLOBIN 29.2 PG (27.0-34.0); MONO % 2.7 % (0.0-8.0); NEUT % 90.3 % (16.0-70.0); PLATELET COUNT 221 TH/MM3 (150-450); RED BLOOD COUNT 4.22 MIL/MM3 (4.50-5.90); RED CELL DISTRIBUTION WIDTH 14.2 % (11.6-17.2); WHITE BLOOD COUNT 17.8 TH/MM3 (4.0-11.0)
[2016-08-05 05:44] LABS: BICARBONATE 22.8 MEQ/L (21.0-32.0); MAGNESIUM 2.4 MG/DL (1.5-2.5); POTASSIUM 3.4 MEQ/L (3.5-5.1)
[2016-08-05] MEDS: FLUTICASONE PROPIONATE 50 MCG/ACT 16 GM NASAL SPRAY EACH NARE SCH (08:30)
[2016-08-05] MEDS: PANTOPRAZOLE SOD 40 MG DELAYED RELEASE TAB PO SCH (08:31)
[2016-08-05] MEDS: NICOTINE 21 MG/24 HR PATCH TD SCH (08:31)
[2016-08-05] MEDS: REMOVE OLD NICODERM (NICOTINE) PATCH TD SCH (08:31)
[2016-08-05] MEDS: BENZONATATE 100 MG CAP PO SCH ×3 (08:32→17:45)
[2016-08-05] MEDS: GABAPENTIN 300 MG CAP PO SCH ×3 (08:32→20:58)
[2016-08-05] MEDS: NIFEdipine 30 MG SUSTAINED RELEASE TAB PO SCH (08:32)
[2016-08-05] MEDS: SODIUM CHLORIDE 0.9% FLUSH 5 ML FLUSH IVF SCH ×2 (09:03→21:01)
[2016-08-05] MEDS: MORPHINE SULFATE 4 MG/ML INJ IV PUSH PRN (09:03)
--- NOTE | 2016-08-05 10:40 | RADRPT ---
EXAM DATE/TIME: 08/05/2016 10:09 [facility] COMPARISON: CHEST SINGLE AP, August 03, 2016, 13:04. INDICATIONS : Chest tightness, pressure, and shortness of breath. MEDICAL HISTORY : Chronic obstructive pulmonary disease. Emphysema. SURGICAL HISTORY : None. ENCOUNTER: Initial ACUITY: 3 days PAIN SCORE: 0/10 LOCATION: Bilateral chest FINDINGS: A single view of the chest demonstrates the lungs to be symmetrically aerated without evidence of mas s, infiltrate or effusion. The cardiomediastinal contours are unremarkable. Osseous structures are intact. CONCLUSION: No acute disease. Vinicius La MD on August 05, 2016 at 10:34 Board Certified Radiologist. This report was verified electronically.
[2016-08-05] MEDS: cloNIDine HCL 0.2 MG TAB PO PRN (12:03)
[2016-08-05] MEDS: ACETAMINOPHEN/HYDROcodone 325 MG/5 MG TAB PO PRN (12:04)
--- NOTE | 2016-08-05 13:27 | EKG ---
Date Performed: 08/03/2016 Time Performed: 12:56:01 PTAGE: 60 years EKG: SINUS TACHYCARDIA MODERATE ST DEPRESSION Since previous tracing, no significant change note d ABNORMAL ECG PREVIOUS TRACING : 08/02/2016 17.56 DOCTOR: Ana M Ritter Interpretating Date/Time 08/05/2016 13:25:39
[2016-08-05] MEDS: ENALAPRILAT 1.25 MG/ML VIAL IV PRN (13:34)
--- NOTE | 2016-08-05 16:51 | HHI.PR ---
Subjective Remarks 60 YOWM with COPD exac, Bronchitis Feels much better Weaned to 4 LNC Has cough no Fever Good appetite Objective Vital Signs Vital Signs Date Time Temp Pulse Resp B/P Pulse Ox O2 Delivery O2 Flow Rate FiO2 08/05/16 14:00 97 08/05/16 14:00 98.0 87 19 116/59 97 08/05/16 12:00 92 08/05/16 12:00 95 Nasal Cannula 4.00 08/05/16 12:00 98.2 87 10 144/67 96 08/05/16 10:00 97 08/05/16 08:40 95 Nasal Cannula 4.00 08/05/16 08:00 88 08/05/16 08:00 95 Nasal Cannula 4.00 08/05/16 08:00 97 08/05/16 08:00 97.5 91 19 133/63 94 08/05/16 06:00 95 08/05/16 04:00 95 Nasal Cannula 4.00 08/05/16 04:00 98.0 87 18 129/75 95 08/05/16 04:00 87 08/05/16 02:00 99 08/05/16 00:00 97.6 95 20 118/64 94 08/05/16 00:00 94 Nasal Cannula 4.00 08/05/16 00:00 95 08/04/16 22:00 98 08/04/16 21:30 20 08/04/16 20:18 94 Nasal Cannula 4.00 08/04/16 20:00 97 08/04/16 20:00 97.5 97 24 134/69 95 08/04/16 20:00 97 Nasal Cannula 4.00 I/O 08/04/16 08/04/16 08/04/16 08/05/16 08/05/16 08/05/16 07:00 15:00 23:00 07:00 15:00 23:00 Intake Total 84 ml 500 ml 168 ml 100 ml Output Total 500 ml 600 ml 350 ml Balance 84 ml 500 ml -332 ml -500 ml -350 ml Intake Oral 400 ml IV Total 84 ml 100 ml 168 ml 100 ml Output Urine Total 500 ml 600 ml 350 ml # Voids 3 # Bowel Movements 0 Result Diagram: 08/05/16 0500 08/05/16 0500 Objective Remarks GENERAL: WBWN WM, mild sob SKIN: Warm and dry. HEAD: Normocephalic. EYES: No scleral icterus. No injection or drainage. NECK: Supple, trachea midline. No JVD or lymphadenopathy. CARDIOVASCULAR: Regular rate and rhythm without murmurs, gallops, or rubs. RESPIRATORY: Breath sounds equal bilaterally. No accessory muscle use. Exp rhonchi GASTROINTESTINAL: Abdomen soft, non-tender, nondistended. MUSCULOSKELETAL: No cyanosis, or edema. BACK: Nontender without obvious deformity. No CVA tenderness. A/P Assessment and Plan COPD exac Resp insuff HTN Nicotine use PLAN: IV Abx Zosyn IV Solumedrol Aerosol nebs Robitussin AC cough syp Tessalon 200 mg tid Stable to tr to floor. Humberto Catalan MD Aug 05, 2016 16:51
--- NOTE | 2016-08-05 17:37 | HHI.PR ---
Subjective Remarks breathing better from admission. Objective Vitals Vital Signs Date Time Temp Pulse Resp B/P Pulse Ox O2 Delivery O2 Flow Rate FiO2 08/05/16 16:54 97 Nasal Cannula 4.00 08/05/16 16:15 96 08/05/16 14:00 97 08/05/16 14:00 98.0 87 19 116/59 97 08/05/16 12:00 92 08/05/16 12:00 95 Nasal Cannula 4.00 08/05/16 12:00 98.2 87 10 144/67 96 08/05/16 10:00 97 08/05/16 08:40 95 Nasal Cannula 4.00 08/05/16 08:00 88 08/05/16 08:00 95 Nasal Cannula 4.00 08/05/16 08:00 97 08/05/16 08:00 97.5 91 19 133/63 94 08/05/16 06:00 95 08/05/16 04:00 95 Nasal Cannula 4.00 08/05/16 04:00 98.0 87 18 129/75 95 08/05/16 04:00 87 08/05/16 02:00 99 08/05/16 00:00 97.6 95 20 118/64 94 08/05/16 00:00 94 Nasal Cannula 4.00 08/05/16 00:00 95 08/04/16 22:00 98 08/04/16 21:30 20 08/04/16 20:18 94 Nasal Cannula 4.00 08/04/16 20:00 97 08/04/16 20:00 97.5 97 24 134/69 95 08/04/16 20:00 97 Nasal Cannula 4.00 08/04/16 08/04/16 08/05/16 15:00 23:00 07:00 Intake Total 500 ml 168 ml 100 ml Output Total 500 ml 600 ml Balance 500 ml -332 ml -500 ml Intake Oral 400 ml IV Total 100 ml 168 ml 100 ml Output Urine Total 500 ml 600 ml # Voids 3 # Bowel Movements 0 Result Diagram: 08/05/16 0500 08/05/16 0500 Imaging Last Impressions Chest X-Ray 08/03/16 0000 Signed Impressions: Service Date/Time: Wednesday, August 03, 2016 13:04 - CONCLUSION: No acute disease. Catarino Gómez MD FACR Objective Remarks GENERAL: This is a well-nourished, well-developed patient, in no apparent distress. CARDIOVASCULAR: Regular rate and rhythm without murmurs, gallops, or rubs. RESPIRATORY: air movement is much improved from admission. still with b/l wheezing. GASTROINTESTINAL: Abdomen soft, non-tender, nondistended. Normal active bowel sounds MUSCULOSKELETAL: Extremities without clubbing, cyanosis, or edema. NEURO: Alert & Oriented x4 to person, place, time, situation. Moves all ext x4 A/P Problem List: (1) COPD with exacerbation Status: Acute Plan: - comgmt with Pulmonary - much improved from 08/03 - tolerating 3L NC - if desaturates at night will resume Bipap - CXR (08/03/16) --> NO acute findings - IV solumedrol - duonebs - IS - Acapella - levaquin 08/02-08/03 - continue zosyn - pt strongly counselled on the importance of smoking cessation - I anticipate that pt will need another 2-3 days of hospitalization (2) Sepsis Status: Acute Plan: Likely of a respiratory source. We'll treat as if he has underlying community-acquired pneumonia at this point. Has reportedly failed a couple rounds of antibiotics. - resolved - see above (3) Bronchitis Status: Acute Plan: Treat as noted above. (4) Tobacco abuse Status: Chronic Plan: Counseled to stop smoking. Provide NicoDerm. Problem Qualifiers (1) Sepsis: Qualified Code: A41.9 - Sepsis, due to unspecified organism Gray Martinez DO Aug 05, 2016 17:37
[2016-08-05] MEDS: ENOXAPARIN SODIUM 40 MG/0.4 ML SYRINGE SQ SCH (20:59)
[2016-08-06] VITALS (8 sets, daily range): BP systolic 131–154; BP diastolic 71–85; PULSE 88–108; RESP 17–20; TEMP 95.2–97.9; O2SAT 94–97
[2016-08-06] MEDS: RESP: ALBUTEROL 2.5 MG/IPRATROPIUM 0.5 MG NEB (SCH) INH ×7 (01:17→23:41)
[2016-08-06] MEDS: methylPREDNISolone SOD SUCC 125 MG/2 ML VIAL IVP SCH ×3 (02:47→17:06)
[2016-08-06] MEDS: guaiFENesin/CODEINE SYRUP 200 MG/20 MG/10 ML CUP PO SCH ×4 (02:48→21:51)
[2016-08-06] MEDS: CHLORHEXIDINE GLUCONATE 2 % 1 PACK (2 CLOTHS)(taper/protocol) TOP SCH (03:38)
[2016-08-06] MEDS: PIPERACIL-TAZO 4.5 GM PREMIX 100 ML IV SCH ×4 (03:45→21:55)
[2016-08-06] MEDS: NICOTINE 21 MG/24 HR PATCH TD SCH (08:36)
[2016-08-06] MEDS: BENZONATATE 100 MG CAP PO SCH ×3 (08:37→17:06)
[2016-08-06] MEDS: SODIUM CHLORIDE 0.9% FLUSH 5 ML FLUSH IVF SCH ×2 (08:37→21:51)
[2016-08-06] MEDS: PANTOPRAZOLE SOD 40 MG DELAYED RELEASE TAB PO SCH (08:37)
[2016-08-06] MEDS: GABAPENTIN 300 MG CAP PO SCH ×3 (08:37→21:52)
[2016-08-06] MEDS: NIFEdipine 30 MG SUSTAINED RELEASE TAB PO SCH (08:37)
[2016-08-06] MEDS: FLUTICASONE PROPIONATE 50 MCG/ACT 16 GM NASAL SPRAY EACH NARE SCH (08:38)
[2016-08-06] MEDS: ACETAMINOPHEN/HYDROcodone 325 MG/5 MG TAB PO PRN ×3 (08:49→23:02)
[2016-08-06] MEDS: REMOVE OLD NICODERM (NICOTINE) PATCH TD SCH (09:00)
--- NOTE | 2016-08-06 09:21 | HHI.PR ---
Subjective Remarks Pt reports that he is not sleeping much at night due to having to do the breathing treatments and vital sign checks He is still quite SOB with ambulating to the bathroom but overall feels that he is improving. Afebrile He complains of LE edema as well. He is elevating his legs while in bed. Objective Vitals Vital Signs Date Time Temp Pulse Resp B/P Pulse Ox O2 Delivery O2 Flow Rate FiO2 08/06/16 08:00 95.2 88 17 133/77 96 08/06/16 03:46 96.7 90 20 131/71 97 08/05/16 23:57 96.7 90 21 130/66 95 08/05/16 20:56 82 08/05/16 20:56 Nasal Cannula 3.00 08/05/16 20:25 96 Nasal Cannula 3.00 08/05/16 20:08 96.0 82 20 117/72 97 08/05/16 17:48 97 Nasal Cannula 3.00 08/05/16 16:54 97 Nasal Cannula 4.00 08/05/16 16:15 96 08/05/16 16:00 96.1 96 18 120/58 97 08/05/16 14:00 97 08/05/16 14:00 98.0 87 19 116/59 97 08/05/16 12:00 92 08/05/16 12:00 95 Nasal Cannula 4.00 08/05/16 12:00 98.2 87 10 144/67 96 08/05/16 10:00 97 08/05/16 08/05/16 08/06/16 15:00 23:00 07:00 Intake Total 585 ml 700 ml Output Total 1150 ml 1800 ml Balance -565 ml -1100 ml Intake Oral 480 ml 480 ml IV Total 105 ml 220 ml Output Urine Total 1150 ml 1800 ml # Bowel Movements 0 Result Diagram: 08/05/16 0500 08/05/16 0500 Other Results Laboratory Tests Test 08/04/16 08/05/16 11:57 05:00 White Blood Count 25.1 TH/MM3 17.8 TH/MM3 Red Blood Count 4.44 MIL/MM3 4.22 MIL/MM3 Hemoglobin 12.4 GM/DL 12.3 GM/DL Hematocrit 38.1 % 36.3 % Mean Corpuscular Volume 85.8 FL 85.9 FL Mean Corpuscular Hemoglobin 28.0 PG 29.2 PG Mean Corpuscular Hemoglobin 32.7 % 34.0 % Concent Red Cell Distribution Width 14.2 % 14.2 % Platelet Count 249 TH/MM3 221 TH/MM3 Mean Platelet Volume 8.7 FL 9.2 FL Neutrophils (%) (Auto) 92.3 % 90.3 % Lymphocytes (%) (Auto) 4.9 % 6.9 % Monocytes (%) (Auto) 2.7 % 2.7 % Eosinophils (%) (Auto) 0.0 % 0.0 % Basophils (%) (Auto) 0.1 % 0.1 % Neutrophils # (Auto) 23.2 TH/MM3 16.1 TH/MM3 Lymphocytes # (Auto) 1.2 TH/MM3 1.2 TH/MM3 Monocytes # (Auto) 0.7 TH/MM3 0.5 TH/MM3 Eosinophils # (Auto) 0.0 TH/MM3 0.0 TH/MM3 Basophils # (Auto) 0.0 TH/MM3 0.0 TH/MM3 CBC Comment DIFF FINAL DIFF FINAL Differential Comment Sodium Level 141 MEQ/L 140 MEQ/L Potassium Level 3.2 MEQ/L 3.4 MEQ/L Chloride Level 105 MEQ/L 105 MEQ/L Carbon Dioxide Level 25.7 MEQ/L 22.8 MEQ/L Anion Gap 10 MEQ/L 12 MEQ/L Blood Urea Nitrogen 16 MG/DL 18 MG/DL Creatinine 1.22 MG/DL 1.08 MG/DL Estimat Glomerular Filtration 61 ML/MIN 70 ML/MIN Rate Random Glucose 244 MG/DL 201 MG/DL Calcium Level 8.6 MG/DL 8.4 MG/DL Magnesium Level 2.4 MG/DL Imaging Last Impressions Chest X-Ray 08/03/16 0000 Signed Impressions: Service Date/Time: Wednesday, August 03, 2016 13:04 - CONCLUSION: No acute disease. Catarino Gómez MD FACR Objective Remarks General: NAD, AAOx3 Chest: b/l wheezing, improved air movement Cardiac: Regular Abd: +BS, soft ND/NT Ext: Bilateral LE edema A/P Problem List: (1) COPD with exacerbation Status: Acute Plan: - comgmt with Pulmonary - much improved from 08/03 - Pt currently tolerating 3L NC - if desaturates at night will resume Bipap - CXR (2/3/17) --> NO acute findings - Pt is currently on IV Solu-Medrol 60mg Q8H, Duonebs Q4H, Robitussin AC, and Tessalon pearls TID - IS - Acapella - Pt was on Levaquin 2/2-2/3 - continue Zosyn - pt strongly counselled on the importance of smoking cessation - I anticipate that pt will need another 2-3 days of hospitalization (2) Sepsis Status: Acute Plan: - Likely of a respiratory source. - He is being treated as if he has underlying community-acquired pneumonia at this point. - Has reportedly failed a couple rounds of antibiotics. - See above (3) Bronchitis Status: Acute Plan: - Treatment as noted above. (4) Tobacco abuse Status: Chronic Plan: - Counseled to stop smoking. - Provide NicoDerm. Assessment and Plan Patient examined. Assessment and plan formulated with Bernice Hough PA-C. I agree with the above. copd exacerbation. Problem Qualifiers (1) Sepsis: Qualified Code: A41.9 - Sepsis, due to unspecified organism Bernice Hough Aug 06, 2016 09:21 Josr Draper MD Aug 06, 2016 20:03
[2016-08-06] MEDS ORDERED: RESP: BUDESONIDE 0.5 MG/2 ML NEB NEB ONE (14:00)
--- NOTE | 2016-08-06 19:36 | HHI.PR ---
Subjective Remarks 60 YOWM with COPD exac, Bronchitis Feels much better Weaned to 4 LNC Has cough no Fever Good appetite Has swelling legs, mild discomfort Objective Vital Signs Vital Signs Date Time Temp Pulse Resp B/P Pulse Ox O2 Delivery O2 Flow Rate FiO2 08/06/16 16:00 95.8 94 17 144/77 97 08/06/16 12:10 96 Nasal Cannula 3.00 08/06/16 12:00 95.8 94 17 145/73 97 08/06/16 08:00 96 Nasal Cannula 3.00 08/06/16 08:00 95.2 88 17 133/77 96 08/06/16 03:46 96.7 90 20 131/71 97 08/05/16 23:57 96.7 90 21 130/66 95 08/05/16 20:56 82 08/05/16 20:56 Nasal Cannula 3.00 08/05/16 20:25 96 Nasal Cannula 3.00 08/05/16 20:08 96.0 82 20 117/72 97 I/O 08/05/16 08/05/16 08/05/16 08/06/16 08/06/16 08/06/16 07:00 15:00 23:00 07:00 15:00 23:00 Intake Total 100 ml 585 ml 700 ml 240 ml Output Total 600 ml 1150 ml 1800 ml Balance -500 ml -565 ml -1100 ml 240 ml Intake Oral 480 ml 480 ml 240 ml IV Total 100 ml 105 ml 220 ml Output Urine Total 600 ml 1150 ml 1800 ml # Voids 5 # Bowel Movements 0 0 Result Diagram: 08/05/16 0500 08/05/16 0500 Objective Remarks GENERAL: WBWN WM, mild sob SKIN: Warm and dry. HEAD: Normocephalic. EYES: No scleral icterus. No injection or drainage. NECK: Supple, trachea midline. No JVD or lymphadenopathy. CARDIOVASCULAR: Regular rate and rhythm without murmurs, gallops, or rubs. RESPIRATORY: Breath sounds equal bilaterally. No accessory muscle use. Exp rhonchi GASTROINTESTINAL: Abdomen soft, non-tender, nondistended. MUSCULOSKELETAL: No cyanosis, or edema. BACK: Nontender without obvious deformity. No CVA tenderness. A/P Assessment and Plan COPD exac Resp insuff HTN Nicotine use PLAN: IV Abx Zosyn IV Solumedrol Aerosol nebs Robitussin AC cough syp Tessalon 200 mg tid Will Get US legs to r/o DVT Humberto Catalan MD Aug 06, 2016 19:36
[2016-08-06] MEDS: RESP: BUDESONIDE 0.5 MG/2 ML NEB NEB SCH (20:40)
[2016-08-06] MEDS: ENOXAPARIN SODIUM 40 MG/0.4 ML SYRINGE SQ SCH (21:54)
--- NOTE | 2016-08-06 22:35 | RADRPT ---
EXAM DATE/TIME: 08/06/2016 21:24 [facility] COMPARISON: No previous studies available for comparison. INDICATIONS : Bilateral leg swelling. MEDICAL HISTORY : Hypertension. Hypercholesterolemia. Chronic obstructive pulmonary disease. Dyspnea. SURGICAL HISTORY : Cardiac catheterization. ENCOUNTER: Initial ACUITY: 1 day PAIN SCORE: 0/10 LOCATION: Bilateral legs. TECHNIQUE: Venous ultrasound of the left and right leg was performed from the inguinal ligament to the proximal calf. Real-time, color Doppler and spectral tracing, compression and augmentation techniques were us ed. FINDINGS: RIGHT LEG: There is normal compressibility of the deep venous system from the inguinal region to the proximal ca lf. No echogenic clot is seen in the lumen of the common femoral, femoral, popliteal, and posterior tibial veins. There is a normal response of the venous system to proximal and distal augmentation an d respiration. LEFT LEG: There is normal compressibility of the deep venous system from the inguinal region to the proximal ca lf. No echogenic clot is seen in the lumen of the common femoral, femoral, popliteal, and posterior tibial veins. There is a normal response of the venous system to proximal and distal augmentation an d respiration. CONCLUSION: Normal examination. Ricardo Holder MD on August 06, 2016 at 22:32 Board Certified Radiologist. This report was verified electronically.
[2016-08-07] VITALS (11 sets, daily range): BP systolic 144–165; BP diastolic 74–86; PULSE 98–109; RESP 17–20; TEMP 95.2–97.4; O2SAT 93–96
[2016-08-07] MEDS: guaiFENesin/CODEINE SYRUP 200 MG/20 MG/10 ML CUP PO SCH ×4 (02:37→22:34)
[2016-08-07] MEDS: methylPREDNISolone SOD SUCC 125 MG/2 ML VIAL IVP SCH ×3 (02:38→17:22)
[2016-08-07] MEDS: CHLORHEXIDINE GLUCONATE 2 % 1 PACK (2 CLOTHS)(taper/protocol) TOP SCH (04:00)
[2016-08-07] MEDS: RESP: ALBUTEROL 2.5 MG/IPRATROPIUM 0.5 MG NEB (SCH) INH ×6 (04:17→23:55)
[2016-08-07] MEDS: PIPERACIL-TAZO 4.5 GM PREMIX 100 ML IV SCH ×2 (04:44→08:00)
[2016-08-07] MEDS: ENALAPRILAT 1.25 MG/ML VIAL IV PRN (04:48)
[2016-08-07 05:15] LABS: BICARBONATE 28.9 MEQ/L (21.0-32.0)
[2016-08-07 05:36] LABS: POTASSIUM 4.1 MEQ/L (3.5-5.1)
[2016-08-07] MEDS: RESP: BUDESONIDE 0.5 MG/2 ML NEB NEB SCH ×2 (07:36→20:26)
[2016-08-07] MEDS: GABAPENTIN 300 MG CAP PO SCH ×3 (07:59→22:34)
[2016-08-07] MEDS: NICOTINE 21 MG/24 HR PATCH TD SCH (07:59)
[2016-08-07] MEDS: PANTOPRAZOLE SOD 40 MG DELAYED RELEASE TAB PO SCH (07:59)
[2016-08-07] MEDS: BENZONATATE 100 MG CAP PO SCH ×3 (07:59→17:22)
[2016-08-07] MEDS: NIFEdipine 30 MG SUSTAINED RELEASE TAB PO SCH (07:59)
[2016-08-07] MEDS: REMOVE OLD NICODERM (NICOTINE) PATCH TD SCH (08:00)
[2016-08-07] MEDS: SODIUM CHLORIDE 0.9% FLUSH 5 ML FLUSH IVF SCH ×2 (08:00→21:00)
[2016-08-07] MEDS: FLUTICASONE PROPIONATE 50 MCG/ACT 16 GM NASAL SPRAY EACH NARE SCH (08:00)
--- NOTE | 2016-08-07 09:59 | HHI.PR ---
Subjective Remarks Pt feels that he is breathing easier today compared to yesterday He is concerned about his blood pressure being higher yesterday and today Pt has been afebrile Objective Vitals Vital Signs Date Time Temp Pulse Resp B/P Pulse Ox O2 Delivery O2 Flow Rate FiO2 08/07/16 08:00 96.5 101 17 162/79 96 08/07/16 07:57 Nasal Cannula 2.50 Humidified 08/07/16 07:37 94 Nasal Cannula 3.00 08/07/16 05:30 159/81 08/07/16 04:19 96 Nasal Cannula 3.00 08/07/16 04:00 97.4 98 18 165/86 96 08/07/16 00:00 96.3 102 20 156/74 94 08/06/16 23:43 95 Nasal Cannula 3.00 08/06/16 21:58 96 Nasal Cannula 3.00 08/06/16 20:43 94 Nasal Cannula 3.00 08/06/16 20:00 97.9 108 18 154/85 96 08/06/16 16:00 95.8 94 17 144/77 97 08/06/16 12:10 96 Nasal Cannula 3.00 08/06/16 12:00 95.8 94 17 145/73 97 08/06/16 08/06/16 08/07/16 15:00 23:00 07:00 Intake Total 240 ml 450 ml 98 ml Output Total 450 ml Balance 240 ml 0 ml 98 ml Intake Oral 240 ml 240 ml IV Total 210 ml 98 ml Output Urine Total 450 ml # Voids 5 # Bowel Movements 0 0 Result Diagram: 08/05/16 0500 08/07/16 0341 Other Results Laboratory Tests Test 08/07/16 03:41 Sodium Level 141 MEQ/L Potassium Level 4.1 MEQ/L Chloride Level 103 MEQ/L Carbon Dioxide Level 28.9 MEQ/L Anion Gap 9 MEQ/L Blood Urea Nitrogen 19 MG/DL Creatinine 1.02 MG/DL Estimat Glomerular Filtration 75 ML/MIN Rate Random Glucose 141 MG/DL Calcium Level 8.7 MG/DL Imaging Last Impressions Chest X-Ray 08/03/16 0000 Signed Impressions: Service Date/Time: Wednesday, August 03, 2016 13:04 - CONCLUSION: No acute disease. Catarino Gómez MD FACR Objective Remarks General: NAD, AAOx3 Chest: b/l wheezing, improving air movement Cardiac: Regular Abd: +BS, soft ND/NT Ext: Bilateral LE edema, improving. A/P Problem List: (1) COPD with exacerbation Status: Acute Plan: - comgmt with Pulmonary - much improved from 08/03 - Pt currently tolerating 2L NC - if desaturates at night will resume Bipap - CXR (08/03/16) --> NO acute findings - Pt is currently on IV Solu-Medrol 60mg Q8H, Duonebs Q4H, Robitussin AC, and Tessalon pearls TID - Budesonide nebs Q12H added on 08/06/16 - IS - Acapella - Blood cultures (08/02) with NGTD - - Pt was on Levaquin 08/02-08/03 - Pt was on Zosyn 08/03-08/07 - pt strongly counselled on the importance of smoking cessation - Cont. to wean off supplemental O2 (2) Sepsis Status: Acute Plan: - Likely of a respiratory source. - He is being treated as if he has underlying community-acquired pneumonia at this point. - Has reportedly failed a couple rounds of antibiotics. - See above (3) Bronchitis Status: Acute Plan: - Treatment as noted above. (4) Tobacco abuse Status: Chronic Plan: - Counseled to stop smoking. - Provide NicoDerm. Assessment and Plan Patient examined. Assessment and plan formulated with Bernice Hough PA-C. I agree with the above. copd exacerbation. will call cp tomorrow and find out cost of nebulized symbicort and spiriva. he can't affort the symbicort inhaler. wean oxygen Problem Qualifiers (1) Sepsis: Qualified Code: A41.9 - Sepsis, due to unspecified organism Bernice Hough Aug 07, 2016 09:59 Josr Draper MD Aug 07, 2016 13:56
--- NOTE | 2016-08-07 20:18 | HHI.PR ---
Subjective Remarks 60 YOWM with COPD exac, Bronchitis Feels much better Weaned to 4 LNC Has cough no Fever Good appetite Wants to know about lung transplant Objective Vital Signs Vital Signs Date Time Temp Pulse Resp B/P Pulse Ox O2 Delivery O2 Flow Rate FiO2 08/07/16 16:00 95.2 106 18 157/86 94 08/07/16 15:44 94 Nasal Cannula 2.00 08/07/16 12:00 97.2 109 17 144/77 95 08/07/16 08:00 96.5 101 17 162/79 96 08/07/16 07:57 Nasal Cannula 2.50 Humidified 08/07/16 07:37 94 Nasal Cannula 3.00 08/07/16 05:30 159/81 08/07/16 04:19 96 Nasal Cannula 3.00 08/07/16 04:00 97.4 98 18 165/86 96 08/07/16 00:00 96.3 102 20 156/74 94 08/06/16 23:43 95 Nasal Cannula 3.00 08/06/16 21:58 96 Nasal Cannula 3.00 08/06/16 20:43 94 Nasal Cannula 3.00 I/O 08/06/16 08/06/16 08/06/16 08/07/16 08/07/16 08/07/16 07:00 15:00 23:00 07:00 15:00 23:00 Intake Total 700 ml 240 ml 450 ml 98 ml 460 ml Output Total 1800 ml 450 ml 300 ml Balance -1100 ml 240 ml 0 ml 98 ml 160 ml Intake Oral 480 ml 240 ml 240 ml 360 ml IV Total 220 ml 210 ml 98 ml 100 ml Output Urine Total 1800 ml 450 ml 300 ml # Voids 5 # Bowel Movements 0 0 0 0 Result Diagram: 08/05/16 0500 08/07/16 0341 Objective Remarks GENERAL: WBWN WM, mild sob SKIN: Warm and dry. HEAD: Normocephalic. EYES: No scleral icterus. No injection or drainage. NECK: Supple, trachea midline. No JVD or lymphadenopathy. CARDIOVASCULAR: Regular rate and rhythm without murmurs, gallops, or rubs. RESPIRATORY: Breath sounds equal bilaterally. No accessory muscle use. Exp rhonchi GASTROINTESTINAL: Abdomen soft, non-tender, nondistended. MUSCULOSKELETAL: No cyanosis, or edema. BACK: Nontender without obvious deformity. No CVA tenderness. A/P Assessment and Plan COPD exac Resp insuff HTN Nicotine use PLAN: IV Abx Zosyn DC Solumedrol PO Prednisone. Aerosol nebs Robitussin AC cough syp Tessalon 200 mg tid DW Pt and his BrigitteHumberto leon MD Aug 07, 2016 20:18
[2016-08-07] MEDS: ACETAMINOPHEN/HYDROcodone 325 MG/5 MG TAB PO PRN (22:34)
[2016-08-07] MEDS: ENOXAPARIN SODIUM 40 MG/0.4 ML SYRINGE SQ SCH (22:35)
[2016-08-08] VITALS (9 sets, daily range): BP systolic 104–176; BP diastolic 73–91; PULSE 80–101; RESP 18–20; TEMP 95.6–97.7; O2SAT 95–98
[2016-08-08] MEDS: guaiFENesin/CODEINE SYRUP 200 MG/20 MG/10 ML CUP PO SCH ×4 (02:32→20:55)
[2016-08-08] MEDS: RESP: ALBUTEROL 2.5 MG/IPRATROPIUM 0.5 MG NEB (SCH) INH ×5 (03:19→20:12)
[2016-08-08] MEDS: CHLORHEXIDINE GLUCONATE 2 % 1 PACK (2 CLOTHS)(taper/protocol) TOP SCH (03:52)
[2016-08-08] MEDS: cloNIDine HCL 0.2 MG TAB PO PRN (06:10)
[2016-08-08] MEDS: ACETAMINOPHEN/HYDROcodone 325 MG/5 MG TAB PO PRN (06:10)
[2016-08-08] MEDS: RESP: BUDESONIDE 0.5 MG/2 ML NEB NEB SCH ×2 (07:47→20:12)
[2016-08-08] MEDS: GABAPENTIN 300 MG CAP PO SCH ×3 (08:02→20:56)
[2016-08-08] MEDS: predniSONE 10 MG TAB PO SCH ×3 (08:02→17:13)
[2016-08-08] MEDS: NIFEdipine 30 MG SUSTAINED RELEASE TAB PO SCH ×2 (08:02→20:54)
[2016-08-08] MEDS: BENZONATATE 100 MG CAP PO SCH ×3 (08:02→17:13)
[2016-08-08] MEDS: PANTOPRAZOLE SOD 40 MG DELAYED RELEASE TAB PO SCH (08:02)
[2016-08-08] MEDS: NICOTINE 21 MG/24 HR PATCH TD SCH (08:03)
[2016-08-08] MEDS: SODIUM CHLORIDE 0.9% FLUSH 5 ML FLUSH IVF SCH ×2 (08:03→20:56)
[2016-08-08] MEDS: REMOVE OLD NICODERM (NICOTINE) PATCH TD SCH (08:03)
[2016-08-08] MEDS: FLUTICASONE PROPIONATE 50 MCG/ACT 16 GM NASAL SPRAY EACH NARE SCH (08:03)
--- NOTE | 2016-08-08 11:05 | HHI.PR ---
Subjective Remarks inside was racing and felt bad last night. elevated bp says breathing is better despite more wheezing. Objective Vitals heart reg lung martha wheezing abd s/nt ext no edema Vital Signs Date Time Temp Pulse Resp B/P Pulse Ox O2 Delivery O2 Flow Rate FiO2 08/08/16 08:01 Nasal Cannula 1.00 Humidified 08/08/16 08:00 96.6 87 20 104/ 98 08/08/16 07:47 96 Nasal Cannula 2.00 08/08/16 07:10 17 08/08/16 04:00 96.6 95 18 161/88 95 08/08/16 00:00 97.2 101 18 176/91 95 08/07/16 23:55 96 Nasal Cannula 1.00 08/07/16 22:30 Nasal Cannula 1.00 08/07/16 20:00 97.2 101 20 158/84 93 08/07/16 16:00 95.2 106 18 157/86 94 08/07/16 15:44 94 Nasal Cannula 2.00 08/07/16 12:00 97.2 109 17 144/77 95 08/07/16 08/07/16 08/08/16 15:00 23:00 07:00 Intake Total 460 ml 360 ml 240 ml Output Total 300 ml Balance 160 ml 360 ml 240 ml Intake Oral 360 ml 360 ml 240 ml IV Total 100 ml 0 ml 0 ml Output Urine Total 300 ml # Voids 2 2 # Bowel Movements 0 1 0 Result Diagram: 08/05/16 0500 08/07/16 0341 Imaging Last Impressions Chest X-Ray 08/03/16 0000 Signed Impressions: Service Date/Time: Wednesday, August 03, 2016 13:04 - CONCLUSION: No acute disease. Catarino Gómez MD FACR A/P Problem List: (1) COPD with exacerbation Status: Acute Plan: - copd exacerbation pt currently on prednisone, nebs. solumedrol stopped 08/07 off abx now. despite worse lung exam says he feels less sob still on 1l o2. check walk test to assure no need for o2 at home. he was feeling bad apparently due to elevation of bp and pulse. monitor showed sinus tach but now nsr. received extra prn bp control. will increase his scheduled for now. I had long talk with him regarding inhaler options at d/c. He says he can't afford the 110 dollars for symbicort. I called cp and we have coupon options for symbicort and breo and 20dollar month option for nebulized formoterol/budesonide which he would like to try as he prefers nebs over inhalers. (2) Bronchitis Status: Acute Plan: - Treatment as noted above. (3) Tobacco abuse Status: Chronic Plan: - Counseled to stop smoking. - Provide NicoDerm. (4) HTN (hypertension) Status: Acute Plan: titrate procJosr Woods MD Aug 08, 2016 11:05
--- NOTE | 2016-08-08 17:38 | HHI.PR ---
Subjective Remarks 60 YOWM with COPD exac, Bronchitis Feels much better Has cough no Fever Good appetite Wants to know about lung transplant weaned to RA Ambulates Objective Vital Signs Vital Signs Date Time Temp Pulse Resp B/P Pulse Ox O2 Delivery O2 Flow Rate FiO2 08/08/16 16:34 96 21 08/08/16 16:00 95.7 80 19 147/83 97 08/08/16 12:00 95.6 95 20 150/86 96 08/08/16 08:01 Nasal Cannula 1.00 Humidified 08/08/16 08:00 96.6 87 20 104/ 98 08/08/16 07:47 96 Nasal Cannula 2.00 08/08/16 07:10 17 08/08/16 04:00 96.6 95 18 161/88 95 08/08/16 00:00 97.2 101 18 176/91 95 08/07/16 23:55 96 Nasal Cannula 1.00 08/07/16 22:30 Nasal Cannula 1.00 08/07/16 20:00 97.2 101 20 158/84 93 I/O 08/07/16 08/07/16 08/07/16 08/08/16 08/08/16 08/08/16 07:00 15:00 23:00 07:00 15:00 23:00 Intake Total 98 ml 460 ml 360 ml 240 ml 240 ml Output Total 300 ml 700 ml Balance 98 ml 160 ml 360 ml 240 ml -460 ml Intake Oral 360 ml 360 ml 240 ml 240 ml IV Total 98 ml 100 ml 0 ml 0 ml 0 ml Output Urine Total 300 ml 700 ml # Voids 2 2 # Bowel Movements 0 1 0 1 Result Diagram: 08/05/16 0500 08/07/16 0341 Objective Remarks GENERAL: WBWN WM, mild sob SKIN: Warm and dry. HEAD: Normocephalic. EYES: No scleral icterus. No injection or drainage. NECK: Supple, trachea midline. No JVD or lymphadenopathy. CARDIOVASCULAR: Regular rate and rhythm without murmurs, gallops, or rubs. RESPIRATORY: Breath sounds equal bilaterally. No accessory muscle use. Exp rhonchi GASTROINTESTINAL: Abdomen soft, non-tender, nondistended. MUSCULOSKELETAL: No cyanosis, or edema. BACK: Nontender without obvious deformity. No CVA tenderness. A/P Assessment and Plan COPD exac Resp insuff HTN Nicotine use PLAN: IV Abx Zosyn PO Prednisone. Aerosol nebs Robitussin AC cough syp Tessalon 200 mg tid DW Pt and his Bed side PFT Humberto Catalan MD Aug 08, 2016 17:38
[2016-08-08] MEDS: ENOXAPARIN SODIUM 40 MG/0.4 ML SYRINGE SQ SCH (20:54)
[2016-08-09] VITALS (11 sets, daily range): BP systolic 135–160; BP diastolic 76–94; PULSE 96–119; RESP 17–20; TEMP 96.5–97.9; O2SAT 92–96
[2016-08-09] MEDS: RESP: ALBUTEROL 2.5 MG/IPRATROPIUM 0.5 MG NEB (SCH) INH ×6 (00:44→20:33)
[2016-08-09] MEDS: guaiFENesin/CODEINE SYRUP 200 MG/20 MG/10 ML CUP PO SCH ×4 (03:21→20:56)
[2016-08-09] MEDS: RESP: BUDESONIDE 0.5 MG/2 ML NEB NEB SCH ×2 (07:31→20:33)
[2016-08-09] MEDS: FLUTICASONE PROPIONATE 50 MCG/ACT 16 GM NASAL SPRAY EACH NARE SCH (09:00)
[2016-08-09] MEDS: REMOVE OLD NICODERM (NICOTINE) PATCH TD SCH ×2 (09:00→20:57)
[2016-08-09] MEDS: NICOTINE 21 MG/24 HR PATCH TD SCH (09:52)
[2016-08-09] MEDS: SODIUM CHLORIDE 0.9% FLUSH 5 ML FLUSH IVF SCH ×2 (09:53→20:57)
[2016-08-09] MEDS: PANTOPRAZOLE SOD 40 MG DELAYED RELEASE TAB PO SCH (09:54)
[2016-08-09] MEDS: predniSONE 10 MG TAB PO SCH ×3 (09:54→17:54)
[2016-08-09] MEDS: NIFEdipine 30 MG SUSTAINED RELEASE TAB PO SCH ×2 (09:54→20:56)
[2016-08-09] MEDS: BENZONATATE 100 MG CAP PO SCH ×3 (09:54→17:55)
[2016-08-09] MEDS: GABAPENTIN 300 MG CAP PO SCH ×3 (09:54→20:56)
--- NOTE | 2016-08-09 12:05 | HHI.PR ---
Subjective Remarks Pt tachycardic again this morning, sinus tach BP elevated mildly into the 140-150's systolic. He is off supplemental O2 He thinks that he is more symptomatic with the tachycardia after Duoneb treatments. Pts weight has been increasing since admission but has not been on IVF Objective Vitals Vital Signs Date Time Temp Pulse Resp B/P Pulse Ox O2 Delivery O2 Flow Rate FiO2 08/09/16 07:34 94 08/09/16 04:15 96.5 100 18 141/80 94 08/09/16 03:34 94 21 08/09/16 00:46 93 21 08/09/16 00:08 96.8 96 18 142/77 95 08/08/16 20:55 100 151/89 08/08/16 20:08 97.7 84 18 134/73 95 08/08/16 16:34 96 21 08/08/16 16:00 95.7 80 19 147/83 97 08/08/16 12:00 95.6 95 20 150/86 96 08/08/16 08/08/16 08/09/16 15:00 23:00 07:00 Intake Total 240 ml 480 ml 380 ml Output Total 700 ml Balance -460 ml 480 ml 380 ml Intake Oral 240 ml 480 ml 380 ml IV Total 0 ml Output Urine Total 700 ml # Voids 2 2 # Bowel Movements 1 Result Diagram: 08/05/16 0500 08/07/16 0341 Imaging Last Impressions Chest X-Ray 08/03/16 0000 Signed Impressions: Service Date/Time: Wednesday, August 03, 2016 13:04 - CONCLUSION: No acute disease. Catarino Gómez MD FACR Objective Remarks General: NAD, AAOx3 Chest: Bilateral wheezing Cardiac: Regular, tachy Abd: +BS, soft ND/NT Ext: Bilateral LE edema A/P Problem List: (1) COPD with exacerbation Status: Acute Plan: - Pt admitted with a COPD exacerbation - Pt currently on prednisone, nebs. solumedrol stopped 08/07 - Pt is off abx now. - He is still having wheezing but overall feels less sob - Pt has been weaned off supplemental O2 - Pt has been tachycardic this morning with sinus tach on telemetry - BP elevated with systolic in the 140-150's but Procardia was increased to 30mg BID on 08/08/16 - He has had swelling in the LE despite not being on IVF and his weight has increased from 89.1kg on 08/03/16 to 97.8kg today - Check 2D echo - Some of his tachycardia may be related to his Duoneb treatments. - Pt would like to continued nebulized formoterol/budesonide as an outpt (2) Bronchitis Status: Acute Plan: - Treatment as noted above. (3) Tobacco abuse Status: Chronic Plan: - Counseled to stop smoking. - Provide NicoDerm. (4) HTN (hypertension) Status: Acute Plan: - Pt Procardia increased to 30mg po BID on 08/08/16 (5) Lower extremity edema Status: Acute Assessment and Plan Patient examined. Assessment and plan formulated with Bernice Hough PA-C. I agree with the above. copd exacerbation. severe. slow improvement. volume overload . gained 10kg weight. echo. lasix. lower frequency for nebs..pt very tachycardic and symptomatic. Problem Qualifiers (1) Lower extremity edema: Qualified Code: R60.0 - Bilateral edema of lower extremity Bernice Hough Aug 09, 2016 12:05 Josr Draper MD Aug 09, 2016 13:56
[2016-08-09] MEDS ORDERED: FUROSEMIDE 20 MG/2 ML VIAL IV PUSH ONE (13:30)
--- NOTE | 2016-08-09 16:34 | HHI.PR ---
Subjective Remarks 60 YOWM with COPD exac, Bronchitis Feels much better Has cough no Fever Good appetite Wants to know about lung transplant weaned to RA Ambulates Had Techycardia Objective Vital Signs Vital Signs Date Time Temp Pulse Resp B/P Pulse Ox O2 Delivery O2 Flow Rate FiO2 08/09/16 12:00 96.7 102 17 146/76 95 08/09/16 08:00 97.4 108 18 159/83 94 08/09/16 07:34 94 08/09/16 04:15 96.5 100 18 141/80 94 08/09/16 03:34 94 21 08/09/16 00:46 93 21 08/09/16 00:08 96.8 96 18 142/77 95 08/08/16 20:55 100 151/89 08/08/16 20:08 97.7 84 18 134/73 95 I/O 08/08/16 08/08/16 08/08/16 08/09/16 08/09/16 08/09/16 07:00 15:00 23:00 07:00 15:00 23:00 Intake Total 240 ml 240 ml 480 ml 380 ml Output Total 700 ml Balance 240 ml -460 ml 480 ml 380 ml Intake Oral 240 ml 240 ml 480 ml 380 ml IV Total 0 ml 0 ml Output Urine Total 700 ml # Voids 2 2 2 # Bowel Movements 0 1 Result Diagram: 08/05/16 0500 08/07/16 0341 Objective Remarks GENERAL: WBWN WM, mild sob SKIN: Warm and dry. HEAD: Normocephalic. EYES: No scleral icterus. No injection or drainage. NECK: Supple, trachea midline. No JVD or lymphadenopathy. CARDIOVASCULAR: Regular rate and rhythm without murmurs, gallops, or rubs. RESPIRATORY: Breath sounds equal bilaterally. No accessory muscle use. Exp rhonchi GASTROINTESTINAL: Abdomen soft, non-tender, nondistended. MUSCULOSKELETAL: No cyanosis, or edema. BACK: Nontender without obvious deformity. No CVA tenderness. A/P Assessment and Plan COPD exac Resp insuff HTN Nicotine use PLAN: IV Abx Zosyn PO Prednisone. Aerosol nebs Robitussin AC cough syp Tessalon 200 mg tid Humberto Catalan MD Aug 09, 2016 16:34
--- NOTE | 2016-08-09 17:26 | EC ---
Study Study Date:08/09/2016 STUDY CONCLUSIONS SUMMARY - Left ventricle: The cavity size was normal. Wall thickness was normal. Systolic function was normal. The estimated ejection fraction was in the range of 55% to 60%. Wall motion was normal; there were no regional wall motion abnormalities. - Aortic valve: Valve area: 3.13cm^2(VTI). Valve area: 2.7cm^2 (Vmax). If LV function is below 40, please consider prescribing an ACEI or ARB or document rationale for non-use. PROCEDURE DATA STUDY STATUS: Elective. Procedure: Transthoracic echocardiography. Image quality was good. Scanning was performed from the parasternal, apical, and subcostal acoustic windows. Study completion: The patient tolerated the procedure well. Transthoracic echocardiography. M-mode, complete 2D, complete spectral Doppler, and color Doppler. Height: Height: 70in. Weight: Weight: 214.6lb. Body mass index: BMI: 30.8kg/m^2. Body surface area: BSA: 2.15m^2. Patient status: Inpatient. CARDIAC ANATOMY LEFT VENTRICLE: The cavity size was normal. Wall thickness was normal. Systolic function was normal. The estimated ejection fraction was in the range of 55% to 60%. Wall motion was normal; there were no regional wall motion abnormalities. AORTIC VALVE: Trileaflet; normal thickness leaflets. Doppler: Transvalvular velocity was within the normal range. There was no stenosis. No regurgitation. Valve area: 3.13cm^2(VTI). Indexed valve area: 1.46cm^2/m^2 (VTI). Valve area: 2.7cm^2 (Vmax). Indexed valve area: 1.26cm^2/m^2 (Vmax). Mean gradient: 3mm Hg (S). AORTA: Aortic root: The aortic root was normal in size. MITRAL VALVE: Structurally normal valve. Doppler: Transvalvular velocity was within the normal range. There was no evidence for stenosis. No regurgitation. LEFT ATRIUM: The atrium was normal in size. RIGHT VENTRICLE: The cavity size was normal. Wall thickness was normal. PULMONIC VALVE: Doppler: Transvalvular velocity was within the normal range. There was no evidence for stenosis. No regurgitation. TRICUSPID VALVE: Structurally normal valve. Doppler: Transvalvular velocity was within the normal range. No regurgitation. PULMONARY ARTERY: The main pulmonary artery was normal-sized. Systolic pressure was within the normal range. RIGHT ATRIUM: The atrium was normal in size. PERICARDIUM: There was no pericardial effusion. SYSTEMIC VEINS: Inferior vena cava: The vessel was normal in size. Patient weight: 214.6lb _Ejection fraction:_ 65-75% _Fractional shortening:_ 32% up to 5Kg 5-11.5Kg 11.6-22.9Kg 23-45Kg 45-57Kg Aortic Root 7-13 <17 13-22 17-27 17-27 LA diam 6-13 <23 24-38 33-47 37-40 RVID 10-17 7-15 7-15 7-18 8-17 LVIDd 12-22 <32 24-38 33-47 37-40 LVPW 2-4 3-6 5-7 6-8 7-8 IVS 2-4 3-6 5-7 6-8 7-8 BASIC MEASUREMENTS ADULT NORMAL Left ventricle LV internal dimension, ED, chordal 46.1 mm 43-52 level, PLAX LV internal dimension, ES, chordal 30.3 mm 23-38 level, PLAX Fractional shortening, chordal level, 34 % >29 PLAX LV posterior wall thickness, ED 9.72 mm IVS/LVPW ratio, ED 1 <1.3 Ventricular septum Septal thickness, ED 9.76 mm Aortic valve Leaflet separation 23 mm 15-26 Aorta Root diameter, ED 36 mm Left atrium Anterior-posterior dimension 30 mm Anterior-posterior dimension index 1.4 cm/m^2 <2.2 BASIC MEASUREMENTS ADULT NORMAL Aortic valve Leaflet separation 23 mm 15-26 DOPPLER MEASUREMENTS ADULT NORMAL Aortic valve Peak velocity, S 125 cm/s Mean velocity, S 80.6 cm/s VTI, S 22.1 cm Mean gradient, S 3 mm Hg Valve area, VTI 3.13 cm^2 Valve area index, VTI 1.46 cm^2/m^2 Valve area, Vmax 2.7 cm^2 Valve area index, Vmax 1.26 cm^2/m^2 Mitral valve Peak E-wave velocity 69.6 cm/s Peak A-wave velocity 79 cm/s Peak E/A ratio 0.9 Pulmonic valve Peak velocity, S 112 cm/s LEGEND: Mean values are shown as u=mean value. Asterisk (*) gutierrez values outside specified normal range. Prepared and signed by Low Menjivar [id number]
[2016-08-09] MEDS: ENOXAPARIN SODIUM 40 MG/0.4 ML SYRINGE SQ SCH (20:57)
[2016-08-10] VITALS (8 sets, daily range): BP systolic 129–156; BP diastolic 79–98; PULSE 95–113; RESP 18–20; TEMP 95.5–98.1; O2SAT 92–96
[2016-08-10] MEDS: guaiFENesin/CODEINE SYRUP 200 MG/20 MG/10 ML CUP PO SCH ×4 (02:16→21:11)
[2016-08-10] MEDS: RESP: ALBUTEROL 2.5 MG/IPRATROPIUM 0.5 MG NEB (SCH) INH ×4 (03:49→21:02)
[2016-08-10 05:50] LABS: BICARBONATE 34.7 MEQ/L (21.0-32.0); POTASSIUM 3.6 MEQ/L (3.5-5.1)
[2016-08-10] MEDS: ACETAMINOPHEN/HYDROcodone 325 MG/5 MG TAB PO PRN ×5 (06:21→21:13)
[2016-08-10] MEDS ORDERED: POTASSIUM CHLORIDE 20 MEQ CONTROLLED RELEASE TAB PO ONE (06:45)
[2016-08-10] MEDS ORDERED: FUROSEMIDE 20 MG/2 ML VIAL IV PUSH ONE (06:45)
[2016-08-10] MEDS ORDERED: FUROSEMIDE 40 MG/4 ML VIAL IV PUSH ONE (06:45)
[2016-08-10] MEDS: BENZONATATE 100 MG CAP PO SCH ×3 (07:39→16:20)
[2016-08-10] MEDS: NIFEdipine 30 MG SUSTAINED RELEASE TAB PO SCH ×2 (07:39→21:12)
[2016-08-10] MEDS: GABAPENTIN 300 MG CAP PO SCH ×3 (07:40→21:12)
[2016-08-10] MEDS: PANTOPRAZOLE SOD 40 MG DELAYED RELEASE TAB PO SCH (07:40)
[2016-08-10] MEDS: predniSONE 10 MG TAB PO SCH ×2 (07:40→21:12)
[2016-08-10] MEDS: NICOTINE 21 MG/24 HR PATCH TD SCH (07:40)
[2016-08-10] MEDS: FLUTICASONE PROPIONATE 50 MCG/ACT 16 GM NASAL SPRAY EACH NARE SCH (07:40)
[2016-08-10] MEDS: SODIUM CHLORIDE 0.9% FLUSH 5 ML FLUSH IVF SCH ×2 (07:40→21:13)
[2016-08-10] MEDS: RESP: BUDESONIDE 0.5 MG/2 ML NEB NEB SCH ×2 (10:15→19:02)
--- NOTE | 2016-08-10 10:43 | HHI.PR ---
Subjective Remarks Pt states that he is feeling worse today as far as his breathing goes He did urinate quite a bit overnight Less swelling in the LE today Objective Vitals Vital Signs Date Time Temp Pulse Resp B/P Pulse Ox O2 Delivery O2 Flow Rate FiO2 08/10/16 08:00 95.5 95 20 149/92 93 08/10/16 04:00 97.5 100 20 156/98 93 08/10/16 03:51 92 21 08/10/16 00:00 98.1 98 20 129/83 94 08/09/16 20:43 105 08/09/16 20:35 94 21 08/09/16 20:00 97.9 105 20 160/94 96 08/09/16 16:00 97.5 119 17 135/82 92 08/09/16 12:00 96.7 102 17 146/76 95 08/09/16 08/09/16 08/10/16 15:00 23:00 07:00 Intake Total 1320 ml 480 ml 240 ml Output Total 8 ml Balance 1312 ml 480 ml 240 ml Intake Oral 1320 ml 480 ml 240 ml IV Total 0 ml 0 ml Output Urine Total 8 ml # Voids 3 2 # Bowel Movements 0 Result Diagram: 08/10/16 0357 Other Results Laboratory Tests Test 08/10/16 03:57 Sodium Level 140 MEQ/L Potassium Level 3.6 MEQ/L Chloride Level 97 MEQ/L Carbon Dioxide Level 34.7 MEQ/L Anion Gap 8 MEQ/L Blood Urea Nitrogen 19 MG/DL Creatinine 0.82 MG/DL Estimat Glomerular Filtration 96 ML/MIN Rate Random Glucose 88 MG/DL Calcium Level 8.5 MG/DL Imaging Last Impressions Chest X-Ray 08/03/16 0000 Signed Impressions: Service Date/Time: Wednesday, August 03, 2016 13:04 - CONCLUSION: No acute disease. Catarino Gómez MD FACR Objective Remarks General: NAD, AAOx3 Chest: Bilateral wheezing and rhonchi Cardiac: Regular, tachy Abd: +BS, soft ND/NT Ext: Bilateral LE edema, improved slightly A/P Problem List: (1) COPD with exacerbation Status: Acute Plan: - Pt admitted with a COPD exacerbation - Pt currently on prednisone 10mg TID, nebs. Solu-Medrol stopped 08/07 - Pt is off abx now. - He is still having wheezing and today feels more SOB - We will increase his Prednisone to 30mg BID today. - Pt has been weaned off supplemental O2 - Pt would like to continued nebulized formoterol/budesonide as an outpt - Pts bedside PFTs with noted severe COPD - Pt has been tachycardic with sinus tach on telemetry but this does seem to correlate to his Duoneb treatments - BP elevated with systolic in the 140-150's but Procardia was increased to 30mg BID on 08/08/16 (2) Bronchitis Status: Acute Plan: - Treatment as noted above. (3) Tobacco abuse Status: Chronic Plan: - Counseled to stop smoking. - Provide NicoDerm. (4) HTN (hypertension) Status: Acute Plan: - Pt Procardia increased to 30mg po BID on 08/08/16 (5) Lower extremity edema Status: Acute Plan: - He has had swelling in the LE despite not being on IVF and his weight has increased from 89.1kg on 08/03/16 to 97.8kg today - Pt was given a dose of Lasix 20mg IV yesterday with improvement in his weight down 2Kg - Pt given another dose of Lasix 20mg IV this morning. - 2D echo --> estimated EF 55-60% Assessment and Plan Patient examined. Assessment and plan formulated with Bernice Hough PA-C. I agree with the above. 20pounds of fluid retention. lost 5 pounds overnight with lasix cont lasix and check bmp. pt says she is much more sob when solumedrol changed to prednisone. more rhonci and wheezing. will increase the prednisone and taper more slowly. echo neg for chf. Problem Qualifiers (1) Lower extremity edema: Qualified Code: R60.0 - Bilateral edema of lower extremity Bernice Hough Aug 10, 2016 10:43 Josr Draper MD Aug 10, 2016 10:49
[2016-08-10] MEDS ORDERED: predniSONE 10 MG TAB PO ONE (10:45)
--- NOTE | 2016-08-10 18:21 | HHI.PR ---
Subjective Remarks 60 YOWM with COPD exac, Bronchitis Feels much better Has cough no Fever Good appetite Wants to know about lung transplant. weaned to RA Ambulates Objective Vital Signs Vital Signs Date Time Temp Pulse Resp B/P Pulse Ox O2 Delivery O2 Flow Rate FiO2 08/10/16 15:41 96 21 08/10/16 12:00 96.8 113 20 132/82 94 08/10/16 08:00 95.5 95 20 149/92 93 08/10/16 04:00 97.5 100 20 156/98 93 08/10/16 03:51 92 21 08/10/16 00:00 98.1 98 20 129/83 94 08/09/16 20:43 105 08/09/16 20:35 94 21 08/09/16 20:00 97.9 105 20 160/94 96 I/O 08/09/16 08/09/16 08/09/16 08/10/16 08/10/16 08/10/16 07:00 15:00 23:00 07:00 15:00 23:00 Intake Total 380 ml 1320 ml 480 ml 240 ml Output Total 8 ml Balance 380 ml 1312 ml 480 ml 240 ml Intake Oral 380 ml 1320 ml 480 ml 240 ml IV Total 0 ml 0 ml Output Urine Total 8 ml # Voids 2 3 2 # Bowel Movements 0 Result Diagram: 08/10/16 0357 Objective Remarks GENERAL: WBWN WM, mild sob SKIN: Warm and dry. HEAD: Normocephalic. EYES: No scleral icterus. No injection or drainage. NECK: Supple, trachea midline. No JVD or lymphadenopathy. CARDIOVASCULAR: Regular rate and rhythm without murmurs, gallops, or rubs. RESPIRATORY: Breath sounds equal bilaterally. No accessory muscle use. Exp rhonchi GASTROINTESTINAL: Abdomen soft, non-tender, nondistended. MUSCULOSKELETAL: No cyanosis, or edema. BACK: Nontender without obvious deformity. No CVA tenderness. A/P Assessment and Plan COPD exac Resp insuff HTN Nicotine use PLAN: IV Abx Zosyn PO Prednisone. Aerosol nebs Robitussin AC cough syp Tessalon 200 mg tid Avaiable prn over weekend. Humberto Catalan MD Aug 10, 2016 18:21
[2016-08-10] MEDS: ENOXAPARIN SODIUM 40 MG/0.4 ML SYRINGE SQ SCH (21:12)
[2016-08-11] VITALS (8 sets, daily range): BP systolic 132–144; BP diastolic 70–85; PULSE 86–108; RESP 17–21; TEMP 96–98.1; O2SAT 93–96
[2016-08-11] MEDS: ACETAMINOPHEN/HYDROcodone 325 MG/5 MG TAB PO PRN ×4 (02:46→21:36)
[2016-08-11] MEDS: guaiFENesin/CODEINE SYRUP 200 MG/20 MG/10 ML CUP PO SCH ×4 (02:46→21:35)
[2016-08-11] MEDS: RESP: ALBUTEROL 2.5 MG/IPRATROPIUM 0.5 MG NEB (SCH) INH ×4 (04:03→22:10)
[2016-08-11 05:23] LABS: BICARBONATE 28.5 MEQ/L (21.0-32.0); MAGNESIUM 2.5 MG/DL (1.5-2.5); POTASSIUM 4.5 MEQ/L (3.5-5.1)
[2016-08-11] MEDS ORDERED: FUROSEMIDE 20 MG/2 ML VIAL IV PUSH ONE (08:00)
[2016-08-11] MEDS: RESP: BUDESONIDE 0.5 MG/2 ML NEB NEB SCH ×2 (08:41→21:54)
[2016-08-11] MEDS: NICOTINE 21 MG/24 HR PATCH TD SCH (09:00)
[2016-08-11] MEDS: REMOVE OLD NICODERM (NICOTINE) PATCH TD SCH (09:00)
[2016-08-11] MEDS: FLUTICASONE PROPIONATE 50 MCG/ACT 16 GM NASAL SPRAY EACH NARE SCH (09:13)
[2016-08-11] MEDS: predniSONE 10 MG TAB PO SCH ×2 (09:14→21:35)
[2016-08-11] MEDS: SODIUM CHLORIDE 0.9% FLUSH 5 ML FLUSH IVF SCH ×2 (09:14→21:36)
[2016-08-11] MEDS: GABAPENTIN 300 MG CAP PO SCH ×3 (09:14→21:35)
[2016-08-11] MEDS: PANTOPRAZOLE SOD 40 MG DELAYED RELEASE TAB PO SCH (09:15)
[2016-08-11] MEDS: NIFEdipine 30 MG SUSTAINED RELEASE TAB PO SCH ×2 (09:15→21:35)
[2016-08-11] MEDS: BENZONATATE 100 MG CAP PO SCH ×3 (09:21→17:13)
--- NOTE | 2016-08-11 12:11 | HHI.PR ---
Subjective Remarks doing better. Objective Vitals heart reg lung less wheeze abd s/nt ext less swelling of lower ext's Vital Signs Date Time Temp Pulse Resp B/P Pulse Ox O2 Delivery O2 Flow Rate FiO2 08/11/16 08:00 96.6 86 17 144/79 95 08/11/16 04:09 93 Nasal Cannula 08/11/16 04:00 98.1 101 20 132/70 95 08/11/16 00:00 97.7 97 18 132/77 96 08/10/16 20:00 107 08/10/16 20:00 97.8 112 18 141/88 95 08/10/16 16:00 96.3 97 20 137/79 95 08/10/16 15:41 96 21 08/10/16 08/10/16 08/11/16 15:00 23:00 07:00 Intake Total 480 ml 210 ml 120 ml Output Total 2 ml Balance 480 ml 208 ml 120 ml Intake Oral 480 ml 210 ml 120 ml IV Total 0 ml Output Urine Total 2 ml # Voids 6 4 # Bowel Movements 2 2 0 Result Diagram: 08/11/16 0350 Imaging Last Impressions Chest X-Ray 08/03/16 0000 Signed Impressions: Service Date/Time: Wednesday, August 03, 2016 13:04 - CONCLUSION: No acute disease. Catarino Gómez MD FACR A/P Problem List: (1) COPD with exacerbation Status: Acute Plan: - Pt admitted with a COPD exacerbation - Pts bedside PFTs with noted severe COPD intermittent tachycardia related to nebs. elevated htn better after med adjustment cont slow prednisone wean cont nebs. will give script for budesonide/formoterol neb compound on d/c. gentle diuresis. pt had gained 20 pounds. down to 207 today updated . off oxygen plan for d/c home tomorrow. f/u pulmonary. (2) Bronchitis Status: Acute Plan: - Treatment as noted above. (3) Tobacco abuse Status: Chronic Plan: - Counseled to stop smoking. - Provide NicoDerm. (4) HTN (hypertension) Status: Acute Plan: - Pt Procardia increased to 30mg po BID on 08/08/16 (5) Lower extremity edema Status: Acute Plan: - He has had swelling in the LE despite not being on IVF and his weight has increased from 89.1kg on 08/03/16 to 97.8kg today - Pt was given a dose of Lasix 20mg IV yesterday with improvement in his weight down 2Kg - Pt given another dose of Lasix 20mg IV this morning. - 2D echo --> estimated EF 55-60% Problem Qualifiers (1) Lower extremity edema: Qualified Code: R60.0 - Bilateral edema of lower extremity Josr Draper MD Aug 11, 2016 12:11
[2016-08-11] MEDS: ENOXAPARIN SODIUM 40 MG/0.4 ML SYRINGE SQ SCH (21:35)
[2016-08-12] VITALS: BP 137/71; PULSE 101; RESP 21; TEMP 96; O2SAT 95
[2016-08-12] MEDS: guaiFENesin/CODEINE SYRUP 200 MG/20 MG/10 ML CUP PO SCH ×2 (01:27→08:51)
[2016-08-12 04:00] VITALS: BP 131/80; PULSE 84; RESP 20; TEMP 96.3; O2SAT 96
[2016-08-12] MEDS: RESP: ALBUTEROL 2.5 MG/IPRATROPIUM 0.5 MG NEB (SCH) INH ×2 (04:03→10:07)
[2016-08-12] MEDS: ACETAMINOPHEN/HYDROcodone 325 MG/5 MG TAB PO PRN (05:48)
[2016-08-12] MEDS ORDERED: POTASSIUM CHLORIDE 20 MEQ CONTROLLED RELEASE TAB PO ONE (07:45)
[2016-08-12] MEDS ORDERED: FUROSEMIDE 20 MG/2 ML VIAL IV PUSH ONE (07:45)
[2016-08-12 08:00] VITALS: BP 163/88; PULSE 103; RESP 19; TEMP 95.5; O2SAT 94
[2016-08-12] MEDS: RESP: BUDESONIDE 0.5 MG/2 ML NEB NEB SCH (08:25)
[2016-08-12] MEDS: PANTOPRAZOLE SOD 40 MG DELAYED RELEASE TAB PO SCH (08:52)
[2016-08-12] MEDS: GABAPENTIN 300 MG CAP PO SCH (08:52)
[2016-08-12] MEDS: BENZONATATE 100 MG CAP PO SCH ×2 (08:52→12:36)
[2016-08-12] MEDS: predniSONE 10 MG TAB PO SCH (08:52)
[2016-08-12] MEDS: NIFEdipine 30 MG SUSTAINED RELEASE TAB PO SCH (08:52)
[2016-08-12] MEDS: REMOVE OLD NICODERM (NICOTINE) PATCH TD SCH (08:53)
[2016-08-12] MEDS: FLUTICASONE PROPIONATE 50 MCG/ACT 16 GM NASAL SPRAY EACH NARE SCH (08:53)
[2016-08-12] MEDS: SODIUM CHLORIDE 0.9% FLUSH 5 ML FLUSH IVF SCH (08:53)
[2016-08-12] MEDS: NICOTINE 21 MG/24 HR PATCH TD SCH (08:53)
--- NOTE | 2016-08-12 10:36 | HHI.PR ---
Subjective Remarks wants to go home. Objective Vitals haert reg lung good air entry few wheezes abd s/nt ext minimal edema le's Vital Signs Date Time Temp Pulse Resp B/P Pulse Ox O2 Delivery O2 Flow Rate FiO2 08/12/16 08:00 95.5 103 19 163/88 94 08/12/16 04:00 96.3 84 20 131/80 96 08/12/16 00:00 96.0 101 21 137/71 95 08/11/16 21:55 95 21 08/11/16 20:00 97.5 107 21 142/74 96 08/11/16 16:00 96.0 108 17 137/77 93 08/11/16 12:00 96.3 102 19 139/85 95 08/11/16 08/11/16 08/12/16 15:00 23:00 07:00 Intake Total 240 ml 240 ml 0 ml Output Total 700 ml Balance -460 ml 240 ml 0 ml Intake Oral 240 ml 240 ml IV Total 0 ml 0 ml Output Urine Total 700 ml # Voids 2 # Bowel Movements 1 0 Result Diagram: 08/11/16 0350 Imaging Last Impressions Chest X-Ray 08/03/16 0000 Signed Impressions: Service Date/Time: Wednesday, August 03, 2016 13:04 - CONCLUSION: No acute disease. Catarino Gómez MD FACR A/P Problem List: (1) COPD with exacerbation Status: Acute Plan: - Pt admitted with a COPD exacerbation - Pts bedside PFTs with noted severe COPD intermittent tachycardia related to nebs. elevated htn better after med adjustment cont slow prednisone wean cont nebs. will give script for budesonide/formoterol neb compound on d/c. gentle diuresis. pt had gained 20 pounds. down to 207 today updated . off oxygen d/c today with f/u. order new neb machine. (2) Bronchitis Status: Acute Plan: - Treatment as noted above. (3) Tobacco abuse Status: Chronic Plan: - Counseled to stop smoking. - Provide NicoDerm. (4) HTN (hypertension) Status: Acute Plan: - Pt Procardia increased to 30mg po BID on 08/08/16 (5) Lower extremity edema Status: Acute Plan: - He has had swelling in the LE despite not being on IVF and his weight has increased from 89.1kg on 08/03/16 to 97.8kg today - Pt was given a dose of Lasix 20mg IV yesterday with improvement in his weight down 2Kg - Pt given another dose of Lasix 20mg IV this morning. - 2D echo --> estimated EF 55-60% Problem Qualifiers (1) Lower extremity edema: Qualified Code: R60.0 - Bilateral edema of lower extremity Josr Draper MD Aug 12, 2016 10:36
[2016-08-12] MEDS ORDERED: NIFE30TA8 PO (10:43)
[2016-08-12] MEDS ORDERED: PRED10 PO (10:43)
[2016-08-12] MEDS ORDERED: IPRA0.02 NEB (10:43)
[2016-08-12] MEDS ORDERED: ALBU0.08 INH (10:43)
[2016-08-12] MEDS ORDERED: NEBULIZER/ADULT1 KIT (10:44)
--- NOTE | 2016-08-12 10:45 | HHI.DCPOC ---
Discharge Care Plan Diagnosis: (1) COPD with exacerbation Goals to Promote Your Health * To prevent worsening of your condition and complications * To maintain your health at the optimal level Directions to Meet Your Goals Take your medications as prescribed Follow your dietary instruction Follow activity as directed Keep your appointments as scheduled Take your immunizations and boosters as scheduled If your symptoms worsen call your PCP, if no PCP go to Urgent Care Center or Emergency Room Smoking is Dangerous to Your Health. Avoid second hand smoke Call the 24-hour hour crisis hotline for domestic abuse at Josr Draper MD Aug 12, 2016 10:45
[2016-08-12] MEDS ORDERED: FURO1TAB62 PO (11:00)
[2016-08-12 12:00] VITALS: BP 137/76; PULSE 105; RESP 17; TEMP 95.9; O2SAT 96
--- NOTE | 2016-08-14 10:03 | RSPPFT ---
DATE OF PROCEDURE: 08/09/16 COMMENTS: Spirometry demonstrates an FEV1 of 1.5 at 42% of predicted, FVC of 2.8 at 63%, FEV1/FVC ratio is decreased. Flow is decreased at FEF 25-75. There is no significant response after bronchodilator treatment. Flow volume loop indicates an obstructive pattern. IMPRESSION: 1. Severe obstructive lung disease. 2. No response after bronchodilator treatment.
--- NOTE | 2016-09-27 19:57 | HHI.DS ---
Discharge Summary Admission Date Aug 02, 2016 at 21:55 Discharge Date: Aug 12, 2016 Admitting Diagnosis COPD Exacerbation (1) COPD with exacerbation Diagnosis: Principal (2) Bronchitis Diagnosis: Principal (3) Tobacco abuse Diagnosis: Secondary (4) HTN (hypertension) Diagnosis: Secondary (5) Lower extremity edema Diagnosis: Secondary Brief History This is a 60-year-old male who has a 10 year history of COPD presents to the emergency department with increasing shortness of breath over the past week. He says primary care physician who prescribed him prednisone and an antibiotic which he thinks is doxycycline. He finished this antibiotic approximately 14 days ago. He is actually had several COPD exacerbations since late May 2016 and has been through at least 2 cycles of antibiotics and steroids as an outpatient. He is recently switched primary care physicians to Dr. Ramos as he is now [facility] but has not seen his new primary care physician yet. He says his shortness of breath is worsening over the last week associated with a cough, nausea and generalized fatigue. Cough is generally nonproductive. He has difficulty with exertion and he feels chest tightness in the center of his chest when he coughs and breathes. He has had subjective fevers and chills. He 's had a history of recurrent pneumonias in the past. He has not been intubated but has been admitted several times for pneumonia with COPD exacerbation. He has been given nebulizers, supplemental oxygen, and steroids and antibiotics in the ER. His breathing has somewhat improved but he still feels like he has pressure in his chest. A radiation of pain. No diaphoresis. Hospital Course - Pt admitted with a COPD exacerbation - Pts bedside PFTs with noted severe COPD intermittent tachycardia related to nebs. elevated htn better after med adjustment -DC home and cont slow prednisone wean cont nebs. will give script for budesonide/formoterol neb compound on d/c. gentle diuresis. pt had gained 20 pounds. down to 207 today updated . off oxygen d/c today with f/u. order new neb machine. Pt Condition on Discharge: Stable Discharge Disposition: Discharge Home Discharge Instructions DIET: Follow Instructions for: As Tolerated, No Restrictions Activities you can perform: Regular-No Restrictions Follow up Referrals: Pulmonology - 10 Days with Humberto Catalan MD New Medications: Furosemide (Lasix) 20 Mg Tab 20 MG PO DAILY fluid retention #3 Ref 0 TAB Ipratropium Neb (Ipratropium Neb) 0.5 Mg/2.5 Ml Amp 0.5 MG NEB Q6HR Breathing Treatment Days 30 Ref 6 NEBULE Nebulizer/Adult Mask (Nebulizer/Adult Mask) 1 Kit Kit 1 KIT .ROUTE DIRECTED Breathing Treatment #1 Ref 0 KIT Albuterol Neb (Albuterol Neb) 2.5 Mg/3 Ml Neb 2.5 MG INH Q6HR copd Days 30 Ref 6 NEBULE Nifedipine ER 24 HR (Nifedipine ER 24 HR) 30 Mg Tab 30 MG PO BID htn #60 Ref 3 TAB Prednisone (Prednisone) 10 Mg Tab 10 MG PO DIRECTED 30mg po bid x 3 days, 20mg po bid x 5 days, 10mg po bid x 5 days, 10mg po daily x 7 days copd Days 20 TAB Continued Medications: Budesonide-Formoterol Inh (Symbicort Inh) 160-4.5 Mcg/Act Aero 2 PUFF INH Q12HR #1 Ref 0 INHALER Fluticasone Nasal Inlet (Flonase Nasal Inlet) 50 Mcg/Act Inlet 2 PUFF EACH NARE DAILY Allergies #1 Ref 0 BOTTLE Gabapentin (Gabapentin) 300 Mg Cap 300 MG PO BID #60 Ref 0 CAP Gabapentin (Gabapentin) 600 Mg Tab 600 MG PO HS #30 Ref 0 TAB Discontinued Medications: Ipratropium-Albuterol Neb (Duoneb) 0.5-2.5 Mg/3 Ml Neb 1 NEBULE INH Q4HR NEB PRN SHORTNESS OF BREATH #120 Ref 0 NEBULE Metoprolol Tartrate (Lopressor) 50 Mg Tab 50 MG PO BID #60 Ref 0 TAB Josr Draper MD Sep 27, 2016 19:57
== END 2016-08-12 14:29 | disposition home or self-care (01) | DRG 871 ==
LOC: NEPC 17:24 → NEDA 21:55 → N06B 08-03 00:26 → HIMN 08-03 17:20 → N07A 08-05 15:54
PROVIDERS: ADMIT Hospitalist; ATTEND Hospitalist
PROC: 5A09357 Assistance with Respiratory Ventilation, Less than 24 Consecutive Hours, Continuous Positive Airway Pressure (ICD-10-PCS; principal; 2016-08-03)
DX: A41.9 Sepsis, unspecified organism (principal); J18.9 Pneumonia, unspecified organism; I67.1 Cerebral aneurysm, nonruptured; J44.0 Chronic obstructive pulmonary disease with (acute) lower respiratory infection; J44.1 Chronic obstructive pulmonary disease with (acute) exacerbation; J20.9 Acute bronchitis, unspecified; R09.02 Hypoxemia; I10 Essential (primary) hypertension; R73.03 Prediabetes; I25.10 Atherosclerotic heart disease of native coronary artery without angina pectoris; R60.0 Localized edema; E87.70 Fluid overload, unspecified; F17.210 Nicotine dependence, cigarettes, uncomplicated; Z71.6 Tobacco abuse counseling
CPT/HCPCS: 36600; 71010; 80048; 80053; 81001; 82550; 82552; 82805; 83605; 83735; 84484; 85025; 87040; 87641; 87804; 93005; 93306; 93970; 94002; 94003; 94060; 94150; 94620; 94640; 94664; 94667; 96361; 96365; 96375; J1650; J1940; J1956; J2270; J2543; J2930; J7030; J7512; J7613; J7626